=== PATIENT | male | born 1980 | race Caucasian/White ===

== ENCOUNTER → 2020-05-19 11:53 | Outpatient (CLI) | payer OTHER, SELFPAY ==
[2020-05-19 15:49] LABS: Absolute Lymphocyte Count 1.27 X10^3/uL (0.83-4.51); Absolute Neutrophil Count 2.2 X10^3/uL (2.0-7.7); Basophil# 0.01 X10^3/uL; Basophil% 0.2 % (0-1); Eosinophil# 0.12 X10^3/uL; Hematocrit 41.7 % (40-54); Hemoglobin 13.5 g/dL (13.0-16.5); Lymphocyte # 1.27 X10^3/ul (4.0); Lymphocyte % 31.5 % (19-41); Mean Corp Hgb Conc 32.4 g/dL (32-36); Mean Corpuscular Hgb 30.6 pg (27.0-32.0); Mean Corpuscular Volume 94.6 fL (80-94); Mean Platelet Vol. 11.2 fl (6.2-12.0); Monocyte# 0.46 X10^3/uL; Monocyte% 11.4 % (0-10); NRBC Flagged by Analyzer 0 % (0-5); Neutrophil # 2.16 X10^3/uL (2.7-7.7); Neutrophil % 53.7 % (47-70); Platelet Count 228 K/mm3 (150-450); RBC Distribution Width SD 41.8 fl (35.1-43.9); Red Blood Count 4.41 M/mm3 (4.6-6.2)
[2020-05-19 16:05] LABS: ALB/GLOB Ratio 1.3 RATIO (0.9-2.4); AST(SGOT) 23 U/L (15-37); Alanine Aminotransfer ALT/SGPT 28 U/L (16-61); Albumin, Serum 3.8 g/dL (3.2-5.0); Alkaline Phosphatase 58 U/L (45-117); Anion Gap 5 (5-15); BUN 14 mg/dL (7-18); BUN/Creat Ratio 12.4 RATIO (10-20); Calcium,Total 8.6 mg/dL (8.5-10.1); Chloride 109 mmol/L (98-107); Cholesterol 179 mg/dL (200); Creatinine, Serum 1.13 mg/dL (0.70-1.30); EST Glomerular Filtration Rate 76 mL/min (>60); Est Glom Filt Rate - Afr Amer 92 mL/min (>60); Globulin 2.9 g/dL (2.2-4.2); Glucose 75 mg/dL (74-106); High Density Lipoprotein 51 mg/dL; Potassium 4.6 mmol/L (3.5-5.1); Protein, Total 6.7 g/dL (6.4-8.2); Sodium Level 141 mmol/L (136-145); Triglycerides 56 mg/dL; Very Low Density Lipoprotein 11 mg/dL (5-40)
== END ==
PROVIDERS: PCP Family Medicine; Visit Provider Family Medicine
DX: Z00.00 Encounter for general adult medical examination without abnormal findings (principal)
CPT/HCPCS: 36415; 80053; 80061; 85025

== ENCOUNTER 2020-12-21 20:31 | Emergency (ER) | payer OTHER, SELFPAY ==
[2020-12-21 20:33] VITALS: BP 107/79; PULSE 104; RESP 20; TEMP 38; O2SAT 94; BMI 28.3
[2020-12-21 20:36] VITALS: BP 007/79; PULSE 104; RESP 20; TEMP 38; O2SAT 94
--- NOTE | 2020-12-21 20:59 | RAD_ITS ---
STUDY: X-RAY CHEST REASON FOR EXAM: Male, 40 years old. COVID TECHNIQUE: Portable, upright, AP chest radiograph COMPARISON: None. FINDINGS: Mild bilateral lower lung patchy infiltrative opacities. There is no demonstrated pleural abnormality. Normal size heart. Normal mediastinum and loi. Normal visualized pulmonary arteries. Normal visualized aortic arch and descending thoracic aorta. Normal visualized thoracic spine. Normal visualized ribs, clavicles, and shoulders. There is no demonstrated abnormality of the visualized soft tissue structures of the upper abdomen. RAD/Chest 1 View (Portable) IMPRESSION: Bilateral lower lung infiltrates. Electronically Signed: Vinnie Phan MD at 22:25 EDT Tel , Service support ,
[2020-12-21] MEDS: predniSONE 20 MG Tablet 60 MG PO (21:25)
[2020-12-21] MEDS: Acetaminophen 500 MG Tablet 1000 MG PO (21:25)
[2020-12-21 21:27] VITALS: BP 140/78; PULSE 88; RESP 19; TEMP 39.4; O2SAT 90
[2020-12-21 21:30] VITALS: O2SAT 90; O2SAT 96
[2020-12-21 21:32] VITALS: BP 99/75; PULSE 88; RESP 17; O2SAT 98
--- NOTE | 2020-12-21 22:04 | EDS_ITS ---
HPI History of Present Illness Chief Complaint: Shortness of Breath Narrative Narrative: Patient presenting for evaluation secondary to complications of coronavirus. Patient states that he developed symptoms on Tuesday of this week, he did test positive. States that he is here because he is having some increasing issues secondary to his underlying asthma. He reports that he is having some shortness of breath and wheezing. Continues to have fevers, has been treating these with ibuprofen and Tylenol at home. Patient states that he has an old inhaler and nebulizer which are only giving him minimal relief. He denies significant nausea or vomiting. Denies any diarrhea. Review of systems otherwise negative. [facility] Medical History Asthma Home Medications albuterol sulfate 2.5 mg INHALATION Q20M PRN #30 ea 12/21/20 [Rx Last Taken Unknown] albuterol sulfate [Ventolin HFA] 2 puff INHALATION Q6H PRN 12/21/20 [History Last Taken Unknown] prednisone 60 mg PO DAILY #15 tablet 12/21/20 [Rx Last Taken Unknown] Allergy/AdvReac Type Severity Reaction Status Date / Time No Known Allergies Allergy Verified 12/21/20 20:32 Social History Smoking Status: Never smoker ROS ROS ED Constitutional Constitutional ED: Reports chills and fever(s) ENT ENT ED: Denies rhinorrhea Cardiovascular Cardiovascular: Denies chest pain Respiratory/Chest Respiratory/Chest: Reports cough and dyspnea Gastrointestinal Gastrointestinal: Denies abdominal pain, diarrhea, nausea or vomiting Genitourinary Genitourinary ED: Denies dysuria or hematuria Musculoskeletal Musculoskeletal: Denies back pain Integumentary Denies rash Neurologic Neurologic: Denies paresthesias or weakness Psychiatric Psychiatric: Denies depression Endocrine Endocrinology: Denies fatigue Allergic/Immunologic Allergic/Immunologic ED: Denies urticaria EXAM Physical Exam Const Vital Signs: 12/21/20 20:33 12/21/20 20:36 12/21/20 21:27 Temperature 100.4 F H 100.4 F H 102.9 F H Temperature Source Temporal Temporal Oral Pulse Rate 104 H 104 H 88 Respiratory Rate 20 H 20 H 19 H Respiratory Effort Blood Pressure 107/79 007/79 140/78 H Blood Pressure Mean 88 55 98 Pulse Ox 94 94 90 Oxygen Delivery Method Room Air Room Air 12/21/20 21:30 12/21/20 21:32 Temperature Temperature Source Pulse Rate 88 Respiratory Rate 17 Respiratory Effort Normal Blood Pressure 99/75 Blood Pressure Mean 83 Pulse Ox 98 Oxygen Delivery Method Room Air Room Air Positive well nourished and well developed General Appearance ED: well developed and NAD HEENT Reports moist mucous membranes Negative for trauma or tenderness Eyes EOMs intact bilaterally Neck no lymphadenopathy, supple and no JVD Chest Wall inspection of chest normal Resp normal respiratory effort and clear to auscultation bilaterally Cardio regular rate, regular rhythm, no murmurs and peripheral pulses 2+ throughout GI normal to inspection, nondistended, normoactive bowel sounds, non-tender and no masses Palpation: soft Back/Spine normal to inspection Extremity normal to inspection General Extremety ED: Negative for tenderness Neuro oriented x3 and no sensory deficits noted Sensorium / Orientation: alert Motor Exam: strength 5/5 throughout Psych mental status grossly normal Skin no rashes or lesions noted MDM MDM MDM Narrative Medical decision making narrative: Patient presenting for evaluation secondary to coronavirus. Patient has low-grade fever, no hypoxia, is otherwise nontoxic appearing in the emergency department. Chest x-ray by my personal review shows changes consistent with coronavirus. Patient was given Tylenol in the emergency department had some improvement of his symptoms. Patient does have underlying asthma, I believe that he potentially would benefit from a course of prednisone albuterol. Will be discharged with a course of that. First dose given in the emergency department. Patient was given return precautions, and expectant management measures for coronavirus. Radiography Chest X-Ray - ED: 1 View, Right Infiltrate and Left Infiltrate Discharge Plan Triage Chief Complaint: Shortness of Breath ED Provider: Ric Valera Dx/Rx/DC Orders Clinical Impression: COVID-19 Instructions: Coronavirus Disease 2019 (COVID-19): Caring for Yourself or Others Prescriptions: New albuterol sulfate 2.5 mg/0.5 mL solution for nebulization 2.5 mg inhalation Q20M PRN (Reason: bronchospasm) Qty: 30 RF: 0 prednisone 20 mg tablet 60 mg PO DAILY Qty: 15 RF: 0 No Action albuterol sulfate [Ventolin HFA] 90 mcg/actuation Hfa Aerosol Inhaler 2 puff INHALATION Q6H PRN (Reason: Shortness Of Breath Or Wheezing) RF: 0 Primary Care Provider: Solitario Herrera Referrals: Solitario Herrera, DO [Primary Care Provider] - 10-14 Days if not better Disposition Disposition: Home, Self Care
[2020-12-21 22:31] VITALS: BP 118/71; BP 118/78; PULSE 88; RESP 17; TEMP 37.2; O2SAT 98
--- NOTE | 2020-12-21 22:40 | ED.RN ---
covid vaccine declined and will get with PCP/pharmacy once feeling better.
== END 2020-12-21 22:39 | disposition home or self-care (01) ==
PROVIDERS: Emergency Provider Emergency Medicine; PCP Family Medicine
DX: U07.1 COVID-19 (principal); J45.909 Unspecified asthma, uncomplicated; Z79.52 Long term (current) use of systemic steroids; Z79.899 Other long term (current) drug therapy
CPT/HCPCS: 71045; 99283; A4216

== ENCOUNTER 2020-12-27 11:43 | Inpatient (IN) | payer OTHER, SELFPAY ==
[2020-12-27] VITALS (24 sets, daily range): BP systolic 101–123; BP diastolic 54–96; PULSE 65–98; RESP 15–24; TEMP 36.7–37.3; O2SAT 86–98; BMI 28.7; BMI 26.8
--- NOTE | 2020-12-27 12:11 | EKG12_ITS ---
Test Reason : SOB Blood Pressure : / mmHG Vent. Rate : 084 BPM Atrial Rate : 084 BPM P-R Int : 118 ms QRS Dur : 088 ms QT Int : 376 ms P-R-T Axes : 043 007 -08 degrees QTc Int : 444 ms Normal sinus rhythm T wave abnormality, consider inferior ischemia Abnormal ECG Confirmed by CHATA CHAPA, SATYA ([id number]), magazine editor IIRS AMADO ([id number]) on 12/29/2020 12:33:36 PM Referred By: Brandon Kothari Confirmed By:SATYA BRIZUELA MD
--- NOTE | 2020-12-27 12:11 | RAD_ITS ---
STUDY: X-RAY CHEST REASON FOR EXAM: Male, 40 years old. Chest pain TECHNIQUE: Single AP portable view of the chest. COMPARISON: 12/21/2020. FINDINGS: Patchy bilateral infiltrates consistent with multifocal pneumonia. There is no demonstrated pleural abnormality. Normal size heart. Normal mediastinum and loi. Normal visualized pulmonary arteries. Normal visualized aortic arch and descending thoracic aorta. Normal visualized thoracic spine. Normal visualized ribs, clavicles, and shoulders. There is no demonstrated abnormality of the visualized soft tissue structures of the upper abdomen. RAD/Chest 1 View (Portable) IMPRESSION: Patchy bilateral infiltrates consistent with multifocal pneumonia including Covid 19. Electronically Signed: Jonathan Arias MD at 13:15 EDT Tel , Service support ,
--- NOTE | 2020-12-27 12:13 | NURSING ---
no old ekgs
[2020-12-27 12:24] LABS: Absolute Lymphocyte Count 0.89 X10^3/uL (0.83-4.51); Absolute Neutrophil Count 8.9 X10^3/uL (2.0-7.7); Basophil# 0.01 X10^3/uL; Basophil% 0.1 % (0-1); Hematocrit 46.5 % (40-54); Hemoglobin 15.1 g/dL (13.0-16.5); Lymphocyte # 0.89 X10^3/ul (0.83-4.51); Lymphocyte % 8.7 % (19-41); Mean Corp Hgb Conc 32.5 g/dL (32-36); Mean Corpuscular Hgb 29.8 pg (27.0-32.0); Mean Corpuscular Volume 91.7 fL (80-94); Mean Platelet Vol. 9.6 fl (6.2-12.0); Monocyte# 0.36 X10^3/uL; Monocyte% 3.5 % (0-10); NRBC Flagged by Analyzer 0 % (0-5); Neutrophil # 8.87 X10^3/uL (2.7-7.7); Neutrophil % 86.7 % (47-70); Platelet Count 407 K/mm3 (150-450); RBC Distribution Width CV 11.7 % (11.6-14.6); RBC Distribution Width SD 39.4 fl (35.1-43.9); Red Blood Count 5.07 M/mm3 (4.6-6.2); White Blood Count 10.2 K/mm3 (4.4-11.0)
[2020-12-27 12:55] LABS: Anion Gap 7 (5-15); BUN 17 mg/dL (7-18); BUN/Creat Ratio 14.5 RATIO (10-20); Chloride 98 mmol/L (98-107); Creatinine, Serum 1.17 mg/dL (0.70-1.30); EST Glomerular Filtration Rate 73 mL/min (>60); Est Glom Filt Rate - Afr Amer 88 mL/min (>60); Estimated Creatinine Clearance 86.66 ml/min; Glucose 105 mg/dL (74-106); Potassium 3.8 mmol/L (3.5-5.1); Sodium Level 136 mmol/L (136-145); Troponin-I HS 16 pg/mL (3.0-78.0)
--- NOTE | 2020-12-27 13:09 | CT_ITS ---
STUDY: CTA CHEST REASON FOR EXAM: Male, 40 years old. Shortness of Breath RADIATION DOSAGE (If Supplied By Facility): CTDIvol = ( 12.08 ) mGy, DLP = ( 486.71 ) mGycm TECHNIQUE: The examination was performed with the intravenous administration of IV 100mL Isovue-370. Post-processing of the angiographic images was performed, with multiplanar reformation and 3D reconstruction. Individualized dose optimization techniques were used for this CT. COMPARISON: None. FINDINGS: Normal enhancement of the main pulmonary artery and right and left pulmonary arteries. Normal enhancement of the bilateral peripheral pulmonary arteries. There is no demonstrated pulmonary embolism. Normal thoracic aorta and visualized great vessels. There is no demonstrated aortic dissection. Normal heart and pericardium. Normal mediastinum. Normal hilar regions. Normal visualized trachea and bronchi. Extensive patchy bilateral infiltrates more dense in the lower lung zones consistent with multifocal pneumonia including Covid 19. There are no pleural effusions. Normal chest wall structures. Normal osseous structures. Normal visualized upper abdomen. CT/CTA Chest W/WO Contrast IMPRESSION: 1. No evidence of pulmonary embolism or aortic dissection. 2. Extensive bilateral infiltrates consistent with multifocal pneumonia including Covid 19. Electronically Signed: Jonathan Arias MD at 13:59 EDT Tel , Service support ,
--- NOTE | 2020-12-27 13:19 | EDS_ITS ---
HPI History of Present Illness Chief Complaint: Shortness of Breath Narrative Narrative: Patient with past medical history of asthma, has nebulizer treatments and an MDI at home, presents with Covid type symptoms. He states that he was seen in the emergency department on Tuesday, approximately 7 days ago, where they performed a swab, but did not send it. He has had increased shortness of breath. He states before he was seen on Tuesday, his symptoms may have began that previous Tuesday or . Has had a low-grade fever, increasing shortness of breath, and nonproductive cough. He states that when he was seen, they did a chest x-ray, and send him home on prednisone and albuterol. He comes back with worsening symptoms, and increasing shortness of breath. He states that he has not gotten his vaccinations for COVID-19. [facility] Medical History Asthma Home Medications albuterol sulfate 2.5 mg INHALATION Q20M PRN #30 ea 12/21/20 [Rx Last Taken Unknown] albuterol sulfate [Ventolin HFA] 2 puff INHALATION Q6H PRN 12/21/20 [History Last Taken Unknown] prednisone 60 mg PO DAILY #15 tablet 12/21/20 [Rx Last Taken Unknown] Allergy/AdvReac Type Severity Reaction Status Date / Time No Known Allergies Allergy Verified 12/27/20 11:47 Social History Smoking Status: Never smoker ROS ROS ED ROS Narrative Constitutional: Positive fever, no chills. HEENT: No sore throat. No neck pain. No loss of vision. No rhinorrhea. Cardiovascular: No chest pain. No palpitations. No pedal edema. Respiratory: Positive cough, worsening shortness of breath. Abdominal: No abdominal pain. No nausea. No vomiting. Genitourinary: No dysuria. No hematuria. Musculoskeletal: No myalgias. No arthralgias. Neurologic: No headaches. No dizziness. No lightheadedness. Skin: No rash. No change in color. Psychiatric: No depression. No anxiety. EXAM Physical Exam Narrative Exam Narrative: Afebrile. Vital signs noted. HEENT: Normocephalic. Atraumatic. PERRL, EOMI. Neck soft and supple. No point tenderness or step off. Cardiovascular: Regular rate and rhythm. No murmurs, rubs, or gallops appreciated. Respiratory: No tachypnea. Coarse breath sounds bilaterally Gastrointestinal: Abdomen soft, nontender, with normoactive bowel sounds. No rebound or guarding. Neurological: Awake. Alert. Nonfocal, nonlateralizing. Skin: No rash. Normal color. No pallor. Musculoskeletal: No pedal edema. Full range of motion extremities. Const Vital Signs: 12/27/20 11:44 12/27/20 12:13 12/27/20 12:14 Temperature 98.4 F 98.4 F Temperature Source Temporal Temporal Pulse Rate 98 98 Respiratory Rate 20 H 20 H Blood Pressure 114/87 H 114/87 H Blood Pressure Mean 96 96 Pulse Ox 86 93 93 Oxygen Delivery Method Room Air Nasal Cannula Nasal Cannula Oxygen Flow Rate (L/min) 3 3 12/27/20 13:16 Temperature Temperature Source Pulse Rate Respiratory Rate Blood Pressure Blood Pressure Mean Pulse Ox 90 Oxygen Delivery Method Nasal Cannula Oxygen Flow Rate (L/min) 6 MDM MDM MDM Narrative Medical decision making narrative: Comprehensive work-up was pursued. Upon further history taking, and review of his EMR, he had told the previous physician that he had already tested positive for coronavirus. When questioned, patient states that he had an outpatient rapid test performed at [facility], which was positive. I explained to him that is why they did not repeat the coronavirus swab on Tuesday because he was a known positive. Nursing protocols have been entered. He is testing positive for coronavirus still. He was placed on 4 L nasal cannula with good oxygen saturations but experienced a dip in his pulse ox to 88% so he was increased to 6 L, and is satting 92%. He is speaking in full sentences. He has a white count of ten. His laboratory work is grossly unremarkable. Chest x-ray shows multifocal bilateral infiltrates consistent with COVID-19. He is still testing positive for COVID-19. He was administered Decadron 6 mg intravenously. I did add a ABG, D-dimer, and CTA. I then discussed the patient with Dr. Kothari for admission to the ICU. I do feel that this is appropriate given his increasing hypoxia. Disposition is admit to the ICU in guarded condition. Lab Data Labs: Laboratory Results - last 24 hr 12/27/20 12/27/20 12:05 12:05 WBC 10.2 RBC 5.07 Hgb 15.1 Hct 46.5 MCV 91.7 MCH 29.8 MCHC 32.5 RDW Std Deviation 39.4 RDW Coeff of [place] 11.7 Plt Count 407 MPV 9.6 Immature Gran % (Auto) 1.000 H Neut % (Auto) 86.7 H Lymph % (Auto) 8.7 L [place] % (Auto) 3.5 Eos % (Auto) 0.0 Baso % (Auto) 0.1 Absolute Neuts (auto) 8.9 H Absolute Lymphs (auto) 0.89 Nucleated RBC % 0 Sodium 136 Potassium 3.8 Chloride 98 Carbon Dioxide 31.0 Anion Gap 7 BUN 17 Creatinine 1.17 Estim Creat Clear Calc 86.66 Est GFR (MDRD) Af Amer 88 Est GFR (MDRD) Non-Af 73 BUN/Creatinine Ratio 14.5 Glucose 105 Calcium 9.0 Troponin I High Sens 16 Radiography Diagnostic Testing: Radiology Impression Chest X-Ray 12/27/20 12:11 IMPRESSION: Patchy bilateral infiltrates consistent with multifocal pneumonia including Covid 19. Electronically Signed: Jonathan Arias MD at 13:15 EDT Tel , Service support , Critical Care Time Critical Care Time: Yes Critical care time (excluding procedures): 30-74 minutes (35), Discussing w/Patient &/or Family/Wind Turbine Technician and Discussing w/Consultants Discharge Plan Triage Chief Complaint: Shortness of Breath ED Provider: Curt Lama Dx/Rx/DC Orders Clinical Impression: COVID-19, Hypoxia Prescriptions: No Action albuterol sulfate [Ventolin HFA] 90 mcg/actuation Hfa Aerosol Inhaler 2 puff INHALATION Q6H PRN (Reason: Shortness Of Breath Or Wheezing) RF: 0 albuterol sulfate 2.5 mg/0.5 mL solution for nebulization 2.5 mg inhalation Q20M PRN (Reason: bronchospasm) Qty: 30 RF: 0 prednisone 20 mg tablet 60 mg PO DAILY Qty: 15 RF: 0 Primary Care Provider: Solitario Herrera Referrals: Solitario Herrera, DO [Primary Care Provider] -
--- NOTE | 2020-12-27 13:27 | HP.PCM.HOS_ITS ---
HPI - General General Date of Admission: 12/27/20 HPI Narrative ROSE RUTLEDGE, is a 40 M who presents to ED for worsening of shortness of breath, nonproductive cough, wheezing for 7 days. His symptoms started about 10 days ago with fatigue, weakness and nonspecific muscle aches. Patient also complains of intermittent fever and chills at home. Has chest tightness mainly on breathing which precipitates his cough. Patient has history of asthma but he does well controlled last 3 to 4 years and on as needed albuterol at home. Chest x-ray and CTA done in ED which shows no evidence of pulmonary embolism but extensive bilateral infiltrates consistent with multifocal, groundglass opacity COVID-19/viral pneumonia. Twelve-lead EKG shows normal sinus rhythm 84 bpm, nonspecific T inversion in lead II and III, QTC 444 ms. Patient is also sick with nonspecific Covid symptoms for last 4 to 5 days. Patient has 3 small kids. He claims to be not a smoker. [facility] Medical History Asthma Home Medications dexamethasone 6 mg PO DAILY 12/27/20 [History Last Taken Unknown] Allergy/AdvReac Type Severity Reaction Status Date / Time No Known Allergies Allergy Verified 12/27/20 11:47 Social History Smoking Status: Never smoker ROS ROS Narrative Constitutional: Reports fatigue and weakness, shortness of breath HEENT: Reports systems reviewed and no addt'l complaints, except as documented Respiratory/Chest: As mentioned in HPI Gastrointestinal: Nausea. Denies coffee ground emesis, hematemesis or vomiting Genitourinary: Denies burning urination or new urinary tract symptoms Musculoskeletal: No joint pain and limited range of motion Neurologic: Denies seizure-like activity skin: No ulcer. No rash Endocrinology: Reports systems reviewed and no addt'l complaints, except as documented Hematologic/Lymphatic: Reports systems reviewed and no addt'l complaints, except as documented Rest 12 ROS are negative except as mentioned in HPI Vital Signs Vital Signs Vital Signs: 12/27/20 11:44 12/27/20 12:13 12/27/20 12:14 Temperature 98.4 F 98.4 F Temperature Source Temporal Temporal Pulse Rate 98 98 Respiratory Rate 20 H 20 H Blood Pressure 114/87 H 114/87 H Blood Pressure Mean 96 96 Pulse Ox 86 93 93 Oxygen Delivery Method Room Air Nasal Cannula Nasal Cannula Oxygen Flow Rate (L/min) 3 3 12/27/20 13:16 Temperature Temperature Source Pulse Rate Respiratory Rate Blood Pressure Blood Pressure Mean Pulse Ox 90 Oxygen Delivery Method Nasal Cannula Oxygen Flow Rate (L/min) 6 Weight Weight: 200 lb Body Mass Index (BMI) 28.7 Physical Exam Narrative Physical exam General: Alert, Oriented x3, Cooperative HEENT: Atraumatic, PERRLA, EOMI, Normocephalic Oral: No Gingival or Mucosal Lesions/ Ulcerations Neck: Supple, No JVD, Negative Carotid Bruits Lungs: Air entry diminished in bilateral lungs. Bilateral inspiratory rhonchi and crepitations present. Severe hypoxia and tachypnea. Cardiovascular: Regular rate, Regular Rhythm, Normal S1, Normal S2, No murmurs Abdomen: Bowel Sounds Present, Soft, Non Tender, Non-Distended : No renal angle tenderness. No suprapubic tenderness. Extremities: No edema, Capillary Refill Less than 3 Seconds Skin: No rashes, No breakdown Musculoskeletal: No Tenderness to Palpation of Joints or Extremities Neurological: Cranial nerves II-XII grossly intact, DTR 2+/4 and Symmetrical, Neuro grossly intact Psych/Mental Status: Normal Affect, Appropriate. Results Lab / Micro Data Result Diagrams: 12/27/20 12:05 12/27/20 12:05 Labs: Laboratory Results - last 24 hr 12/27/20 12:05: WBC 10.2, RBC 5.07, Hgb 15.1, Hct 46.5, MCV 91.7, MCH 29.8, MCHC 32.5, RDW Std Deviation 39.4, RDW Coeff of [place] 11.7, Plt Count 407, MPV 9.6, Immature Gran % (Auto) 1.000 H, Neut % (Auto) 86.7 H, Lymph % (Auto) 8.7 L, [place] % (Auto) 3.5, Eos % (Auto) 0.0, Baso % (Auto) 0.1, Absolute Neuts (auto) 8.9 H, Absolute Lymphs (auto) 0.89, Nucleated RBC % 0 12/27/20 12:05: Sodium 136, Potassium 3.8, Chloride 98, Carbon Dioxide 31.0, Anion Gap 7, BUN 17, Creatinine 1.17, Estim Creat Clear Calc 86.66, Est GFR (MDRD) Af Amer 88, Est GFR (MDRD) Non-Af 73, BUN/Creatinine Ratio 14.5, Glucose 105, Calcium 9.0, Troponin I High Sens 16 Micro: Microbiology 12/27/20 12:00 Nasal Secretion SARS-CoV-2 Antigen (Rapid) - Final SARS-CoV-2 (COVID 19) Radiology Impression Chest X-Ray 12/27/20 12:11 IMPRESSION: Patchy bilateral infiltrates consistent with multifocal pneumonia including Covid 19. Electronically Signed: Jonathan Arias MD at 13:15 EDT Tel , Service support , Assessment & Plan Assessment/Plan (1) Acute respiratory failure with hypoxia: (2) COVID-19: PLAN: This 40-year-old gentleman admitted for acute hypoxic respiratory failure secondary to bilateral COVID-19 pneumonia. 1. Acute hypoxic respiratory failure secondary to COVID-19 pneumonia: ABG 7.4 on 7 L of oxygen. Patient is being admitted in ICU. We will start AIRVO and if needed BiPAP/AVAPS. Director Of Land Acquisition consult to further manage respiratory failure. Started on bolus 200 mg IV remdesivir and Decadron. Discussed with the pharmacist and does not have 100 mg IV remdesivir to continue from tomorrow. Supportive treatment with remdesivir, incentive spirometry and Pep. 2. Asthma exacerbation secondary to COVID-19 pneumonia with history of chronic intermittent asthma: DuoNeb nebulizer and albuterol as needed. Patient is on a steroid. 3. DVT prophylaxis: Lovenox 30 mg subcu twice daily. Discontinue if platelet c ount drops less than 50,000 or hemoglobin less than 8 g% Living will/advanced directive/end of life care: Patient does not have living will or advanced directive. After discussion of benefits/risks procedures involved with full code, DNR CC arrest and DNR CC, the patient wants full code and everything to be done to save him. Patient does want artificial life support including intubation, tube feed, ventilator and/chest compression, central venous catheter, vasopressor and DC shock if needed Total time spent in [id number] encounter in discussion of advanced directive 16 minutes. Charges/Coding Visit Charges Inpatient E&M: 22639 Init Hosp L3 Procedures Hospitalists Procedures: [id number] Advncd Care Plan 30 Min
--- NOTE | 2020-12-27 13:31 | NURSING ---
DR CHILEL FOR ER DOC
--- NOTE | 2020-12-27 13:33 | NURSING ---
ICU [facility] COVID 19, HYPOXIA
--- NOTE | 2020-12-27 13:41 | NURSING ---
ICU 6
[2020-12-27] MEDS: dexAMETHasone 10 MG/ML Vial 6 MG IV (13:44)
[2020-12-27 14:11] LABS: Allen Test Positive; Base Excess 3 mmol/L (-2 to +2); Bicarbonate 27.1 mmol/L (22-26); Blood Gas Specimen Type ART; O2 Delivery Device Cannula; PO2 66 mmHG (75-100); SITE L Radial; SO2 94 % (95-99); Total Carbon Dioxide 28 mmol/L; pCO2 37.6 mmHg (35-45); pH 7.47 (7.35-7.45)
[2020-12-27 14:26] LABS: Ferritin 1600 ng/mL (26-388); Magnesium 2.6 mg/dL (1.6-2.6)
[2020-12-27 14:31] LABS: Procalcitonin 0.12 ng/mL (0.00-0.09)
[2020-12-27] MEDS: Enoxaparin 30 MG/0.3 ML Syringe SC ×2 (14:58→20:27)
[2020-12-27] MEDS: Ipratropium/Albuterol Sulfate 3 ML AMPUL.NEB INHALATION ×3 (15:22→22:42)
[2020-12-27] MEDS: Lactated Ringers 1,000 ML 100 ML IV (18:03)
[2020-12-28] VITALS (34 sets, daily range): BP systolic 105–130; BP diastolic 64–91; PULSE 50–91; RESP 14–32; TEMP 36.6–37.2; O2SAT 6–99
[2020-12-28] MEDS: Ipratropium/Albuterol Sulfate 3 ML AMPUL.NEB INHALATION ×6 (03:22→23:49)
[2020-12-28 04:17] LABS: Absolute Lymphocyte Count 0.75 X10^3/uL (0.83-4.51); Absolute Neutrophil Count 4.9 X10^3/uL (2.0-7.7); Basophil# 0.01 X10^3/uL; Basophil% 0.2 % (0-1); Hematocrit 42.7 % (40-54); Hemoglobin 14.1 g/dL (13.0-16.5); Lymphocyte # 0.75 X10^3/ul (0.83-4.51); Lymphocyte % 12.9 % (19-41); Mean Corpuscular Hgb 30.5 pg (27.0-32.0); Mean Corpuscular Volume 92.4 fL (80-94); Mean Platelet Vol. 9.7 fl (6.2-12.0); Monocyte# 0.14 X10^3/uL; Monocyte% 2.4 % (0-10); NRBC Flagged by Analyzer 0 % (0-5); Neutrophil # 4.86 X10^3/uL (2.7-7.7); Neutrophil % 83.3 % (47-70); POSITIVE MORPHOLOGY YES; Platelet Count 345 K/mm3 (150-450); RBC Distribution Width CV 11.7 % (11.6-14.6); RBC Distribution Width SD 39.7 fl (35.1-43.9); Red Blood Count 4.62 M/mm3 (4.6-6.2); White Blood Count 5.8 K/mm3 (4.4-11.0)
[2020-12-28 04:34] LABS: ALB/GLOB Ratio 0.6 RATIO (0.9-2.4); AST(SGOT) 40 U/L (15-37); Alanine Aminotransfer ALT/SGPT 44 U/L (16-61); Albumin, Serum 2.5 g/dL (3.2-5.0); Alkaline Phosphatase 56 U/L (45-117); Anion Gap 5 (5-15); BUN 14 mg/dL (7-18); Calcium,Total 8.2 mg/dL (8.5-10.1); Chloride 100 mmol/L (98-107); EST Glomerular Filtration Rate 88 mL/min (>60); Est Glom Filt Rate - Afr Amer 106 mL/min (>60); Estimated Creatinine Clearance 101.39 ml/min; Globulin 4.5 g/dL (2.2-4.2); Glucose 134 mg/dL (74-106); Sodium Level 136 mmol/L (136-145)
[2020-12-28 04:42] LABS: Differential Indicated SCAN CRITERIA MET
--- NOTE | 2020-12-28 06:49 | CON.PCM.CC_ITS ---
Assessment & Plan Assessment/Plan (1) Acute respiratory failure with hypoxia: (2) COVID-19: PLAN: RECOMMENDATIONS: 1. Continue supportive care with supplemental oxygen to maintain saturations at or above 90%. 2. Continue Decadron to complete 10-day treatment course. 3. Continue Lovenox twice daily. 4. Remdesivir will not be available until tomorrow. 5. Continue bronchodilators. 6. Encourage incentive spirometer use and mobilize patient as tolerated. 7. Awake prone positioning was strongly encouraged. 8. The patient does not currently have any ICU needs and can be transferred accordingly. IMPRESSIONS: 1. Acute hypoxemic respiratory failure secondary to COVID-19 pneumonia The patient presented to the hospital with progressive dyspnea in the setting of COVID-19, with symptom onset sometime around December 17. The patient is unvaccinated. CTA chest showed no evidence for PE. The patient has been started on appropriate therapy with remdesivir and Decadron, which will be continued without change. Continue supplemental oxygen and wean to maintain saturations at or above 90%. Continue bronchodilator therapy. Continue Lovenox twice daily. Encourage incentive spirometer use and mobilize patient as tolerated. Await prone positioning was discussed with the patient. 2. Self-reported history of asthma Continue bronchodilator therapy as ordered. This note was generated with [employer] dictation software. It may contain incorrect words, spelling, and punctuation that were not noted in checking the note before signing. HPI Consult Data Date of Consult: 12/28/20 HPI Narrative Reason for Consultation: Acute hypoxemic respiratory failure secondary to COVID- 19 pneumonia HPI Narrative: The patient is a 40-year-old male, with a history as outlined below, who presented to the emergency department on December 27 with complaints of shortness of breath. The patient had been evaluated in the emergency department as well on December 21 with similar complaints. The patient had apparently developed symptoms beginning on December 17. The patient was not hypoxemic at that time. The patient is unvaccinated. He does report a history of asthma, with minimal symptoms at baseline. On presentation to the emergency department, the patient was noted to be afebrile and hemodynamically stable. The patient was hypoxemic on room air saturating 86%. Laboratory evaluation revealed no evidence of a leukocytosis. D-dimer was elevated at 1.5. Chemistry profile was unremarkable. Procalcitonin was noted to be 0.12. Arterial blood gas obtained on nasal cannula supplemental oxygen revealed a pH of 7.47, PCO2 of 37 and PO2 of 66. CTA chest showed no evidence for pulmonary embolism. Bilateral patchy infiltrates were noted. Rapid coronavirus antigen testing was positive. The patient was placed on Decadron and Lovenox. He was subsequently admitted to the medical intensive care unit for further management. Although the patient was initially admitted with an oxygen requirement of 10 L/min, he has been weaned down to 7 L/min via nasal cannula this morning. He is currently documented to be overall net +1.6 L for the hospital admission. [facility] Medical History Asthma Home Medications albuterol sulfate 2.5 mg INHALATION Q4H 12/27/20 [History Last Taken 12/27/20 07:00] dexamethasone 6 mg PO DAILY 12/27/20 [History Last Taken Unknown] Allergy/AdvReac Type Severity Reaction Status Date / Time No Known Allergies Allergy Verified 12/27/20 11:47 Social History (Updated 12/27/20 @ 14:40 by Katelynn Fletcher) housing: house Smoking Status: Never smoker ROS Constitutional Constitutional: Reports chills, fatigue, fever(s) and malaise Eyes Eyes: Denies blurry vision or change in vision ENT HEENT: Denies dysphagia, loss taste/smell or nasal congestion Cardiovascular Cardiovascular: Reports dyspnea Respiratory/Chest Respiratory/Chest: Reports cough and dyspnea Gastrointestinal Gastrointestinal: Denies abdominal pain, diarrhea, nausea or vomiting Genitourinary Genitourinary: Denies difficulty urinating Musculoskeletal Musculoskeletal: Denies arthralgias or back pain Integumentary Integumentary: Denies lesions, rash or skin ulcer Neurologic Neurologic: Denies abnormal gait, abnormal speech or confusion Psychiatric Psychiatric: Denies anxiety or depression Endocrine Endocrinology: Reports fatigue Hematologic/Lymphatic Hematologic/Lymphatic: Denies easy bleeding or easy bruising Physical Exam Const alert, oriented x3 and no apparent distress General Appearance: cooperative HEENT normocephalic, head/scalp atraumatic and moist oral mucous membranes Eyes PERRL, EOMs intact bilaterally and conjunctivae normal Neck supple General: trachea midline Resp normal respiratory effort Auscultation: diminished lung sounds; Negative for rales, rhonchi or wheezes Cardio regular rate and regular rhythm GI normal to inspection, nondistended, normoactive bowel sounds Extremity no clubbing, cyanosis or edema Skin no rashes or lesions noted Neuro oriented x3, CN's II-XII intact bilaterally, moves all extremities and no focal motor deficits Psych cooperative and affect normal Lab / Micro Data Result Diagrams: 12/28/20 04:10 12/28/20 04:10 Labs: Laboratory Results - last 24 hr 12/27/20 12:05: WBC 10.2, RBC 5.07, Hgb 15.1, Hct 46.5, MCV 91.7, MCH 29.8, MCHC 32.5, RDW Std Deviation 39.4, RDW Coeff of [place] 11.7, Plt Count 407, MPV 9.6, Immature Gran % (Auto) 1.000 H, Neut % (Auto) 86.7 H, Lymph % (Auto) 8.7 L, [place] % (Auto) 3.5, Eos % (Auto) 0.0, Baso % (Auto) 0.1, Absolute Neuts (auto) 8.9 H, Absolute Lymphs (auto) 0.89, Nucleated RBC % 0 12/27/20 12:05: Sodium 136, Potassium 3.8, Chloride 98, Carbon Dioxide 31.0, Anion Gap 7, BUN 17, Creatinine 1.17, Estim Creat Clear Calc 86.66, Est GFR (MDRD) Af Amer 88, Est GFR (MDRD) Non-Af 73, BUN/Creatinine Ratio 14.5, Glucose 105, Calcium 9.0, Troponin I High Sens 16 12/27/20 12:05: Magnesium 2.6, Ferritin 1600 H, C-React Prot Ext Range 118.00 H 12/27/20 12:05: Procalcitonin 0.12 H 12/27/20 13:15: D-Dimer Quant (PE/DVT) 1.50 H* 12/28/20 04:10: WBC 5.8, RBC 4.62, Hgb 14.1, Hct 42.7, MCV 92.4, MCH 30.5, MCHC 33.0, RDW Std Deviation 39.7, RDW Coeff of [place] 11.7, Plt Count 345, MPV 9.7, Immature Gran % (Auto) 1.200 H, Neut % (Auto) 83.3 H, Lymph % (Auto) 12.9 L, [place] % (Auto) 2.4, Eos % (Auto) 0.0, Baso % (Auto) 0.2, Absolute Neuts (auto) 4.9, Absolute Lymphs (auto) 0.75 L, Nucleated RBC % 0 12/28/20 04:10: Sodium 136, Potassium 4.0, Chloride 100, Carbon Dioxide 31.0, Anion Gap 5, BUN 14, Creatinine 1.00, Estim Creat Clear Calc 101.39, Est GFR (MDRD) Af Amer 106, Est GFR (MDRD) Non-Af 88, BUN/Creatinine Ratio 14.0, Glucose 134 H, Calcium 8.2 L, Total Bilirubin 0.70, AST 40 H, ALT 44, Alkaline Phosphatase 56, Total Protein 7.0, Albumin 2.5 L, Globulin 4.5 H, Albumin/Globulin Ratio 0.6 L Micro: Microbiology 12/27/20 12:00 Nasal Secretion SARS-CoV-2 Antigen (Rapid) - Final SARS-CoV-2 (COVID 19) ABG Data ABG results: ABG 12/27/20 14:03 Specimen Type ART Sample Site L Radial pH 7.47 H Bicarbonate Actual 27.1 H Total CO2 28 Base Excess 3 H O2 Saturation 94 L ABG pCO2 37.6 ABG pO2 66 L Sanju Test Positive O2 Delivery Device Cannula Liter Flow 7.0 Radiology Impression Chest X-Ray 12/27/20 12:11 IMPRESSION: Patchy bilateral infiltrates consistent with multifocal pneumonia including Covid 19. Electronically Signed: Jonathan Arias MD at 13:15 EDT Tel , Service support , Chest CTA 12/27/20 13:09 IMPRESSION: 1. No evidence of pulmonary embolism or aortic dissection. 2. Extensive bilateral infiltrates consistent with multifocal pneumonia including Covid 19. Electronically Signed: Jonathan Arias MD at 13:59 EDT Tel , Service support , Charges/Coding Visit Charges Inpatient E&M: 76819 Init Hosp L3
[2020-12-28] MEDS: Pantoprazole Sodium 40 MG Tablet PO (10:32)
[2020-12-28] MEDS: Enoxaparin 30 MG/0.3 ML Syringe SC ×2 (10:33→21:51)
[2020-12-28] MEDS: dexAMETHasone 10 MG/ML Vial 6 MG IV (10:34)
[2020-12-28] MEDS: 0.9% Saline Lock 10 ML Syringe IV (10:35)
--- NOTE | 2020-12-28 12:33 | PCM.PN.HOSP ---
Subjective Subjective Patient notes of breath is little better than yesterday. Dry cough. Objective Data Objective Data Vital Signs: Vital Signs Temp Pulse Resp BP Pulse Ox 98.7 F 91 18 120/74 97 12/28/20 08:00 12/28/20 10:41 12/28/20 10:41 12/28/20 08:00 12/28/20 10:41 Oxygen Flow Rate (L/min) 9 Oxygen Delivery Method Nasal Cannula Weight: 188 lb 14.978 oz Body Mass Index (BMI) 26.8 Intake & Output: Intake and Output for Last 24 Hours 12/26/20 12/27/20 12/28/20 23:59 23:59 23:59 Intake Total 990 / 990 1440 / 1440 Output Total 300 / 300 Balance 690 / 690 1440 / 1440 Lab / Micro Data Result Diagrams: 12/28/20 04:10 12/28/20 04:10 Labs: Laboratory Results - last 24 hr 12/27/20 12:05: Sodium 136, Potassium 3.8, Chloride 98, Carbon Dioxide 31.0, Anion Gap 7, BUN 17, Creatinine 1.17, Estim Creat Clear Calc 86.66, Est GFR (MDRD) Af Amer 88, Est GFR (MDRD) Non-Af 73, BUN/Creatinine Ratio 14.5, Glucose 105, Calcium 9.0, Troponin I High Sens 16 12/27/20 12:05: Magnesium 2.6, Ferritin 1600 H, C-React Prot Ext Range 118.00 H 12/27/20 12:05: Procalcitonin 0.12 H 12/27/20 13:15: D-Dimer Quant (PE/DVT) 1.50 H* 12/28/20 04:10: WBC 5.8, RBC 4.62, Hgb 14.1, Hct 42.7, MCV 92.4, MCH 30.5, MCHC 33.0, RDW Std Deviation 39.7, RDW Coeff of [place] 11.7, Plt Count 345, MPV 9.7, Immature Gran % (Auto) 1.200 H, Neut % (Auto) 83.3 H, Lymph % (Auto) 12.9 L, [place] % (Auto) 2.4, Eos % (Auto) 0.0, Baso % (Auto) 0.2, Absolute Neuts (auto) 4.9, Absolute Lymphs (auto) 0.75 L, Nucleated RBC % 0 12/28/20 04:10: Sodium 136, Potassium 4.0, Chloride 100, Carbon Dioxide 31.0, Anion Gap 5, BUN 14, Creatinine 1.00, Estim Creat Clear Calc 101.39, Est GFR (MDRD) Af Amer 106, Est GFR (MDRD) Non-Af 88, BUN/Creatinine Ratio 14.0, Glucose 134 H, Calcium 8.2 L, Total Bilirubin 0.70, AST 40 H, ALT 44, Alkaline Phosphatase 56, Total Protein 7.0, Albumin 2.5 L, Globulin 4.5 H, Albumin/Globulin Ratio 0.6 L Micro: Microbiology 12/27/20 12:00 Nasal Secretion SARS-CoV-2 Antigen (Rapid) - Final SARS-CoV-2 (COVID 19) ABG Data ABG results: ABG 12/27/20 14:03 Specimen Type ART Sample Site L Radial pH 7.47 H Bicarbonate Actual 27.1 H Total CO2 28 Base Excess 3 H O2 Saturation 94 L ABG pCO2 37.6 ABG pO2 66 L Sanju Test Positive O2 Delivery Device Cannula Liter Flow 7.0 Radiography Diagnostic Testing: Radiology Impression Chest X-Ray 12/27/20 12:11 IMPRESSION: Patchy bilateral infiltrates consistent with multifocal pneumonia including Covid 19. Electronically Signed: Jonathan Arias MD at 13:15 EDT Tel , Service support , Chest CTA 12/27/20 13:09 IMPRESSION: 1. No evidence of pulmonary embolism or aortic dissection. 2. Extensive bilateral infiltrates consistent with multifocal pneumonia including Covid 19. Electronically Signed: Jonathan Arias MD at 13:59 EDT Tel , Service support , Physical Exam Narrative Physical exam General: Alert, Oriented x3, Cooperative HEENT: Atraumatic, PERRLA, EOMI, Normocephalic Oral: No Gingival or Mucosal Lesions/ Ulcerations Neck: Supple, No JVD, Negative Carotid Bruits Lungs: Air entry diminished in bilateral lungs. Bilateral inspiratory rhonchi and crepitations present. Severe hypoxia Cardiovascular: Regular rate, Regular Rhythm, Normal S1, Normal S2, No murmurs Abdomen: Bowel Sounds Present, Soft, Non Tender, Non-Distended : No renal angle tenderness. No suprapubic tenderness. Extremities: No edema, Capillary Refill Less than 3 Seconds Skin: No rashes, No breakdown Musculoskeletal: No Tenderness to Palpation of Joints or Extremities Neurological: Cranial nerves II-XII grossly intact, DTR 2+/4 and Symmetrical, Neuro grossly intact Psych/Mental Status: Normal Affect, Appropriate. Assessment & Plan Assessment/Plan (1) Acute respiratory failure with hypoxia: (2) COVID-19: PLAN: This 40-year-old gentleman admitted for acute hypoxic respiratory failure secondary to bilateral COVID-19 pneumonia. 1. Acute hypoxic respiratory failure secondary to COVID-19 pneumonia: ABG 7.4 // on 7 L of oxygen. Patient is being admitted in ICU. We will start AIRVO and if needed BiPAP/AVAPS. Senior Electrical Engineer consult to further manage respiratory failure. Started on bolus 200 mg IV remdesivir and Decadron. Discussed with the pharmacist and does not have 100 mg IV remdesivir to continue from tomorrow. Supportive treatment with remdesivir, incentive spirometry and Pep. 12/28: Patient on 7 to 9 L of oxygen through nasal cannula. Subjective slight improvement with the patient. Senior Electrical Engineer consult reviewed. 2. Asthma exacerbation secondary to COVID-19 pneumonia with history of chronic intermittent asthma: DuoNeb nebulizer and albuterol as needed. Patient is on a steroid. 3. DVT prophylaxis: Lovenox 30 mg subcu twice daily. Discontinue if platelet count drops less than 50,000 or hemoglobin less than 8 g% Living will/advanced directive/end of life care: Patient does not have living will or advanced directive. After discussion of benefits/risks procedures involved with full code, DNR CC arrest and DNR CC, the patient wants full code and everything to be done to save him. Patient does want artificial life support including intubation, tube feed, ventilator and/chest compression, central venous catheter, vasopressor and DC shock if needed Total time spent in [id number] encounter in discussion of advanced directive 16 minutes. Charges/Coding Visit Charges Inpatient E&M: 80150 Subs Hosp L2
[2020-12-28] MEDS: guaiFENesin 1,200 MG Tablet 1200 MG PO ×2 (14:01→21:51)
[2020-12-28] MEDS: Sodium Chloride 0.65% 1 SPRAY SPRAY.BTL 2 SPRAY NASAL (21:51)
[2020-12-29] VITALS (18 sets, daily range): BP systolic 108–123; BP diastolic 65–82; PULSE 52–98; RESP 16–20; TEMP 36.7–37.3; O2SAT 90–97
[2020-12-29] MEDS: guaiFENesin 1,200 MG Tablet 1200 MG PO ×2 (08:27→22:18)
[2020-12-29] MEDS: dexAMETHasone 4 MG Tablet 6 MG PO (08:27)
[2020-12-29] MEDS: Pantoprazole Sodium 40 MG Tablet PO (08:28)
[2020-12-29] MEDS: Enoxaparin 30 MG/0.3 ML Syringe SC ×2 (08:28→22:18)
[2020-12-29] MEDS: Sodium Chloride 0.65% 1 SPRAY SPRAY.BTL 2 SPRAY NASAL ×2 (08:29→17:23)
[2020-12-29 08:48] LABS: Anion Gap 4 (5-15); BUN 12 mg/dL (7-18); BUN/Creat Ratio 12.6 RATIO (10-20); Calcium,Total 8.3 mg/dL (8.5-10.1); Chloride 103 mmol/L (98-107); Creatinine, Serum 0.95 mg/dL (0.70-1.30); EST Glomerular Filtration Rate 93 mL/min (>60); Est Glom Filt Rate - Afr Amer 112 mL/min (>60); Estimated Creatinine Clearance 106.73 ml/min; Glucose 89 mg/dL (74-106); Potassium 4.2 mmol/L (3.5-5.1); Sodium Level 137 mmol/L (136-145)
[2020-12-29 08:55] LABS: Absolute Lymphocyte Count 1.01 X10^3/uL (0.83-4.51); Absolute Neutrophil Count 7.1 X10^3/uL (2.0-7.7); Basophil# 0.01 X10^3/uL; Basophil% 0.1 % (0-1); Eosinophil# 0.01 X10^3/uL; Eosinophils% 0.1 % (0-5); Hemoglobin 13.5 g/dL (13.0-16.5); Lymphocyte # 1.01 X10^3/ul (0.83-4.51); Mean Corp Hgb Conc 32.9 g/dL (32-36); Mean Corpuscular Hgb 30.3 pg (27.0-32.0); Mean Corpuscular Volume 92.1 fL (80-94); Mean Platelet Vol. 9.6 fl (6.2-12.0); Monocyte# 0.22 X10^3/uL; Monocyte% 2.6 % (0-10); NRBC Flagged by Analyzer 0 % (0-5); Neutrophil % 84.3 % (47-70); Platelet Count 422 K/mm3 (150-450); RBC Distribution Width CV 11.7 % (11.6-14.6); RBC Distribution Width SD 39.5 fl (35.1-43.9); Red Blood Count 4.45 M/mm3 (4.6-6.2); White Blood Count 8.4 K/mm3 (4.4-11.0)
--- NOTE | 2020-12-29 10:28 | CASEMGMT ---
REX SHAW assessment: Face to Face with patient for initial transition planning/care coordination assessment. REX SHAW introduced self and role at [facility], pt voices understanding and consents to assessment. Pt is on 9-10L nc with some tachypnea/SOB. Pt is A/Ox4 and answers all questions appropriately. Care providers, pharmacy, and demographics verified. Presentation: Pt dx'd with COVID last tuesday and states hx asthma Admitting dx: Acute hypoxic resp failure d/t COVID PCP: Sharon Specialists: Pt states no current specialists. Preferred Pharmacy: [facility] Insurance: MMO Prescription Benefit: MMO Living Will/HPOA: Pt states does not have LW/HPOA but is interested in AD info. Pt provided AD paperwork and SW rac card via Carla GOODMAN. LNOK: Carol Ann Mclaughlin, -pt states has not been tested and pt 'doesn't know' if she has symptoms. Living Arrangements: Pt states lives with in ranch home and states no concerns at home. Pt is independent with ADL's. Pt states no concerns with getting groceries/supplies once home. Transportation: Pt states drives self and states no transportation concerns. DME/HHC: Pt states no current DME or need for any DME. Pt states no preference for DME provider if qualifies for home oxygen at discharge. Pt states no hx of HHC or SNF. Pt states no concerns with going home at time of discharge. Pt works full stack web developer. Pt states no hx of smoking cigarettes or drinking ETOH. Pt states no further concerns/needs. CM to follow for home oxygen need and any further discharge planning/needs. Advised pt to ask for CM if any further questions/concerns/needs arise, voices understanding. Pt Goal: Home Plan: Home, pending home oxygen testing. [place] REX SHAW
[2020-12-29] MEDS: Ipratropium/Albuterol Sulfate 3 ML AMPUL.NEB INHALATION ×4 (10:36→23:29)
--- NOTE | 2020-12-29 13:08 | PCM.PN.HOSP ---
Subjective Subjective Patient was seen and examined. He complains of diarrhea, about 3 times today. His oxygen requirement has worsened, currently saturating on 14 L. He denied any chest discomfort. Objective Data Objective Data Vital Signs: Vital Signs Temp Pulse Resp BP Pulse Ox 99.2 F H 72 16 123/78 H 96 12/29/20 08:22 12/29/20 10:36 12/29/20 10:36 12/29/20 08:22 12/29/20 10:36 Oxygen Flow Rate (L/min) 9 Oxygen Delivery Method Nasal Cannula Weight: 85.5 kg Body Mass Index (BMI) 26.8 Intake & Output: Intake and Output for Last 24 Hours 12/27/20 12/28/20 12/29/20 23:59 23:59 23:59 Intake Total 990 / 990 2029 / 2029 Output Total 300 / 300 750 / 750 Balance 690 / 690 1280 / 1280 Lab / Micro Data Result Diagrams: 12/29/20 08:12 12/29/20 08:12 Labs: Laboratory Results - last 24 hr 12/29/20 08:12: WBC 8.4, RBC 4.45 L, Hgb 13.5, Hct 41.0, MCV 92.1, MCH 30.3, MCHC 32.9, RDW Std Deviation 39.5, RDW Coeff of [place] 11.7, Plt Count 422, MPV 9.6, Immature Gran % (Auto) 0.900, Neut % (Auto) 84.3 H, Lymph % (Auto) 12.0 L, [place] % (Auto) 2.6, Eos % (Auto) 0.1, Baso % (Auto) 0.1, Absolute Neuts (auto) 7.1, Absolute Lymphs (auto) 1.01, Nucleated RBC % 0 12/29/20 08:12: Sodium 137, Potassium 4.2, Chloride 103, Carbon Dioxide 30.0, Anion Gap 4 L, BUN 12, Creatinine 0.95, Estim Creat Clear Calc 106.73, Est GFR (MDRD) Af Amer 112, Est GFR (MDRD) Non-Af 93, BUN/Creatinine Ratio 12.6, Glucose 89, Calcium 8.3 L Micro: Microbiology 12/27/20 12:00 Nasal Secretion SARS-CoV-2 Antigen (Rapid) - Final SARS-CoV-2 (COVID 19) Physical Exam Narrative Physical exam: General: Alert, Oriented x3, Cooperative, in mild respiratory distress, on 14 L of oxygen, Well developed HEENT: Atraumatic Oral: Moist Mucosa Neck: Supple Lungs: Diminished in all lung zones Cardiovascular: HS I+II, regular, no murmurs Abdomen: Bowel Sounds Present, Soft, Non Tender Extremities: No edema Assessment & Plan Assessment/Plan (1) Acute respiratory failure with hypoxia: (2) COVID-19: PLAN: 1. Acute hypoxic respiratory failure secondary to COVID-19 pneumonia/asthma exacerbation Currently on 13-14 L of oxygen Admitting chest x-ray and CTA of the chest shows bilateral multifocal pneumonia. No PE Continue on dexamethasone, breathing treatments 2. Acute diarrhea likely secondary to COVID-19 infection Will check enteric panel, Imodium as needed Charges/Coding Visit Charges Inpatient E&M: 94663 Subs Hosp L3
[2020-12-29] MEDS: Furosemide 40 MG/4 ML Vial IV (13:34)
[2020-12-29] MEDS: 0.9% Saline Lock 10 ML Syringe IV (13:34)
--- NOTE | 2020-12-29 16:05 | RAD_ITS ---
STUDY: X-RAY CHEST REASON FOR EXAM: Male, 40 years old. Worsening hypoxia with Covid TECHNIQUE: Single AP portable view of the chest. COMPARISON: 12/27/2020 FINDINGS: There are superimposed monitor leads. There is no demonstrated pneumothorax. Slight increase in size and density of previously seen faint peripheral-based infiltrates. There is no demonstrated pleural abnormality. Normal size heart. Normal mediastinum and loi. Normal visualized pulmonary arteries. Normal visualized aortic arch and descending thoracic aorta. Normal visualized thoracic spine. Normal visualized ribs, clavicles, and shoulders. There is no demonstrated abnormality of the visualized soft tissue structures of the upper abdomen. RAD/Chest 1 View (Portable) IMPRESSION: Worsening of multifocal pneumonia. Imaging features can be seen with covid 19 pneumonia, but are nonspecific and may occur with a variety of infectious and noninfectious processes. Electronically Signed: Heide Scott MD at 3:20 EDT , Service support ,
--- NOTE | 2020-12-29 16:06 | PCM.PN.INT ---
Assessment & Plan Assessment/Plan (1) Acute respiratory failure with hypoxia: (2) COVID-19: PLAN: RECOMMENDATIONS: 1. Continue supportive care with supplemental oxygen to maintain saturations at or above 90%. 2. Continue Decadron to complete 10-day treatment course. 3. Continue Lovenox twice daily. 4. Consider initiation of remdesivir 5. Continue bronchodilators. 6. Encourage incentive spirometer use and mobilize patient as tolerated. 7. Awake prone positioning was strongly encouraged. 8. Obtain chest x-ray. Possible vest for pulmonary toileting IMPRESSIONS: 1. Acute hypoxemic respiratory failure secondary to COVID-19 pneumonia The patient presented to the hospital with progressive dyspnea in the setting of COVID-19, with symptom onset sometime around December 17. The patient is unvaccinated. CTA chest showed no evidence for PE. The patient has been started on appropriate therapy with remdesivir and Decadron, which will be continued without change. Continue supplemental oxygen and wean to maintain saturations at or above 90%. Continue bronchodilator therapy. Continue Lovenox twice daily. Patient with acute worsening today despite feeling better. Clinical suspicion for mucous plugging. Will obtain a chest x-ray to evaluate for lobar collapse. If present, initiation of vest therapy would be indicated. Patient has received Lasix. This can be continued if no lobar collapse is appreciated. 2. Self-reported history of asthma Continue bronchodilator therapy as ordered. Patient is on Decadron and bronchodilators. This note was generated with [employer] dictation software. It may contain incorrect words, spelling, and punctuation that were not noted in checking the note before signing. Subjective Subjective Patient overall feels subjectively improved compared to yesterday. However, patient is gone from 9 L to 14 L nasal cannula to maintain saturations. Patient is not reporting any chest pain, abdominal pain, nausea or vomiting. Patient states he has been compliant with incentive spirometer, but has not been using Acapella very often. Objective Data Objective Data Vital Signs: Vital Signs Temp Pulse Resp BP Pulse Ox 37.3 C H 81 16 123/78 H 90 12/29/20 08:22 12/29/20 14:49 12/29/20 10:36 12/29/20 08:22 12/29/20 13:00 Oxygen Flow Rate (L/min) 13 Oxygen Delivery Method Nasal Cannula Weight: 85.5 kg Body Mass Index (BMI) 26.8 Intake & Output: Intake and Output for Last 24 Hours 12/27/20 12/28/20 12/29/20 23:59 23:59 23:59 Intake Total 990 / 990 2029 / 2030 400 / 400 Output Total 300 / 300 750 / 750 Balance 690 / 690 1280 / 1280 400 / 400 Lab / Micro Data Result Diagrams: 12/29/20 08:12 12/29/20 08:12 Labs: Laboratory Results - last 24 hr 12/29/20 08:12: WBC 8.4, RBC 4.45 L, Hgb 13.5, Hct 41.0, MCV 92.1, MCH 30.3, MCHC 32.9, RDW Std Deviation 39.5, RDW Coeff of [place] 11.7, Plt Count 422, MPV 9.6, Immature Gran % (Auto) 0.900, Neut % (Auto) 84.3 H, Lymph % (Auto) 12.0 L, [place] % (Auto) 2.6, Eos % (Auto) 0.1, Baso % (Auto) 0.1, Absolute Neuts (auto) 7.1, Absolute Lymphs (auto) 1.01, Nucleated RBC % 0 12/29/20 08:12: Sodium 137, Potassium 4.2, Chloride 103, Carbon Dioxide 30.0, Anion Gap 4 L, BUN 12, Creatinine 0.95, Estim Creat Clear Calc 106.73, Est GFR (MDRD) Af Amer 112, Est GFR (MDRD) Non-Af 93, BUN/Creatinine Ratio 12.6, Glucose 89, Calcium 8.3 L Micro: Microbiology 12/27/20 12:00 Nasal Secretion SARS-CoV-2 Antigen (Rapid) - Final SARS-CoV-2 (COVID 19) Physical Exam Const alert, oriented x3 and no apparent distress General Appearance: cooperative HEENT normocephalic, head/scalp atraumatic and moist oral mucous membranes Eyes PERRL, EOMs intact bilaterally and conjunctivae normal Neck supple General: trachea midline Chest inspection of chest normal Chest: symmetrical chest wall rise; Negative for crepitus Resp Resp Narrative: Significant dyspnea on exertion Auscultation: rales bilateral base and diminished lung sounds; Negative for rhonchi or wheezes Cardio regular rate and regular rhythm GI normal to inspection, nondistended, normoactive bowel sounds Extremity no clubbing, cyanosis or edema Skin no rashes or lesions noted Neuro oriented x3, CN's II-XII intact bilaterally, moves all extremities and no focal motor deficits Psych cooperative and affect normal Charges/Coding Visit Charges Inpatient E&M: 70645 Subs Hosp L3
--- NOTE | 2020-12-29 17:13 | CHAPLAIN ---
Type of Pastoral Visit ___ Initial Visit ___ Follow-up Visit ___ On-call Visit ___ General Patient Visit ___ Spiritual Assessment ___ Family Conference ___ Bereavement ___ Rapid Response ___ Code Blue _x__ Other (describe below) Pastoral Care Referral From ___ Patient _x__ Family ___ Nurse ___ Physician ___ Rn Psychiatric ___ Online Program Coordinator ___ Other (describe below) Sacrament/Intervention _x__ Active listening ___ Anointing ___ Advent ___ Bereavement ___ Communion ___ Donna exploration ___ ___ Life review _x__ Prayer ___ Reconciliation ___ Sacrament of Sick _x__ Supportive presence ___ Wedding ___ Other (describe below) Pastoral Comments patient is in isolation room; called into room by phone and pt answered; pt able to talk and says he is doing ok and staying positive; pt states that many people in his synagogue are praying for him; pt welcomes support and prayers; pt concern is for his family that he is seperated from at this time
--- NOTE | 2020-12-29 20:06 | PCS.PANDOC ---
PANDEMIC DOCUMENTATION INITIATED: Date: 12/15/2020 Time: 190
[2020-12-30] VITALS (30 sets, daily range): BP systolic 95–131; BP diastolic 63–93; PULSE 52–110; RESP 12–33; TEMP 36.2–38.2; O2SAT 89–99
[2020-12-30] MEDS: Ipratropium/Albuterol Sulfate 3 ML AMPUL.NEB INHALATION ×5 (03:04→22:47)
--- NOTE | 2020-12-30 05:34 | NURSING ---
This nurse called charge nurse to notify respiratory for this nurse because patient Sp02 86% on NC 14L. Had patient use acapella to help with opening the lungs stats started working it way up slowly. Patient stated need to go to the bathroom to use the toilet nurse assisted patient to the toilet and back to bed. Patient back in bed and using acapella again was able to get up to Spo2 up to 90% at 14L and destat again. Respiratory in room at this time setting up airvo and patient is on airvo at this time.
[2020-12-30] MEDS: dexAMETHasone 4 MG Tablet 6 MG PO (08:23)
[2020-12-30] MEDS: guaiFENesin 1,200 MG Tablet 1200 MG PO ×2 (08:23→22:36)
[2020-12-30] MEDS: Enoxaparin 30 MG/0.3 ML Syringe SC ×2 (08:23→22:36)
[2020-12-30] MEDS: Pantoprazole Sodium 40 MG Tablet PO (08:23)
[2020-12-30] MEDS: Acetaminophen 325 MG Tablet 650 MG PO ×2 (09:09→22:35)
[2020-12-30] MEDS: Furosemide 40 MG/4 ML Vial IV (12:38)
[2020-12-30] MEDS: 0.9% Saline Lock 10 ML Syringe IV ×2 (12:38→22:36)
--- NOTE | 2020-12-30 13:24 | NURSING ---
This RN called and gave report to REX Carvalho in ICU.
--- NOTE | 2020-12-30 13:26 | NURSING ---
This RN called and updated the pt's again today to let her know that the pt has been requiring more oxygen as the day has gone on and will be getting moved to ICU for closer monitoring.
--- NOTE | 2020-12-30 13:29 | PCM.PN.INT ---
Assessment & Plan Assessment/Plan (1) Acute respiratory failure with hypoxia: (2) COVID-19: PLAN: RECOMMENDATIONS: 1. Continue supportive care with supplemental oxygen to maintain saturations at or above 90%. 2. Continue Decadron to complete 10-day treatment course. 3. Continue Lovenox twice daily. 4. Hold on vest therapy for now 5. Continue bronchodilators. 6. Encourage incentive spirometer use and mobilize patient as tolerated. 7. Awake prone positioning was strongly encouraged. 8. Transition to the intensive care unit IMPRESSIONS: 1. Acute hypoxemic respiratory failure secondary to COVID-19 pneumonia The patient presented to the hospital with progressive dyspnea in the setting of COVID-19, with symptom onset sometime around December 17. The patient is unvaccinated. CTA chest showed no evidence for PE earlier in the hospitalization. The patient has been started on appropriate therapy with remdesivir and Decadron, which will be continued without change. Continue supplemental oxygen and wean to maintain saturations at or above 90%. Continue bronchodilator therapy. Continue Lovenox twice daily. Patient with acute worsening today despite feeling better. Chest x-ray did not show a lobar collapse. Patient did receive Lasix yesterday with negative fluid balance, but continues to have hypoxia. Will transition patient to the intensive care unit for possible BiPAP rescue. 2. Self-reported history of asthma Continue bronchodilator therapy as ordered. Patient is on Decadron and bronchodilators. This note was generated with [employer] dictation software. It may contain incorrect words, spelling, and punctuation that were not noted in checking the note before signing. Subjective Subjective Patient overall feels subjectively unchanged compared to yesterday. Patient continues to have a cough with little production. However, patient has progressively become more hypoxic requiring 93% by high flow nasal cannula oxygen to maintain saturations. Patient is not reporting any nausea, vomiting or diarrhea. No chest pain or hemoptysis has been reported. Objective Data Objective Data Vital Signs: Vital Signs Temp Pulse Resp BP Pulse Ox 37.1 C 77 32 H 125/86 H 91 12/30/20 13:00 12/30/20 13:00 12/30/20 13:00 12/30/20 13:00 12/30/20 13:00 Oxygen Flow Rate (L/min) 60 Oxygen Delivery Method Airvo Weight: 85 kg Body Mass Index (BMI) 26.8 Intake & Output: Intake and Output for Last 24 Hours 12/28/20 12/29/20 12/30/20 23:59 23:59 23:59 Intake Total 2029 / 2029 900 / 900 600 / 600 Output Total 750 / 750 1850 / 1850 Balance 1280 / 1280 -950 / -950 600 / 600 Lab / Micro Data Result Diagrams: 12/29/20 08:12 12/29/20 08:12 Micro: Microbiology 12/27/20 12:00 Nasal Secretion SARS-CoV-2 Antigen (Rapid) - Final SARS-CoV-2 (COVID 19) Radiography Diagnostic Testing: Radiology Impression Chest X-Ray 12/29/20 16:05 IMPRESSION: Worsening of multifocal pneumonia. Imaging features can be seen with covid 19 pneumonia, but are nonspecific and may occur with a variety of infectious and noninfectious processes. Electronically Signed: Heide Scott MD at 3:20 EDT , Service support , Physical Exam Const alert and oriented x3 Constitutional Narrative: Some conversational dyspnea noted. General Appearance: cooperative HEENT normocephalic, head/scalp atraumatic and moist oral mucous membranes Eyes PERRL, EOMs intact bilaterally and conjunctivae normal Neck supple General: trachea midline Chest inspection of chest normal Chest: symmetrical chest wall rise; Negative for crepitus Resp Resp Narrative: Significant dyspnea on exertion Effort and Inspection: respiratory distress and actively coughing non-productive Auscultation: rales bilateral base and diminished lung sounds; Negative for rhonchi or wheezes Cardio regular rate and regular rhythm GI normal to inspection, nondistended, normoactive bowel sounds Extremity no clubbing, cyanosis or edema Skin no rashes or lesions noted Neuro oriented x3, CN's II-XII intact bilaterally, moves all extremities and no focal motor deficits Psych cooperative and affect normal Charges/Coding Visit Charges Inpatient E&M: 10876 Subs Hosp L3
--- NOTE | 2020-12-30 13:52 | PCM.PN.HOSP ---
Subjective Subjective Patient was seen and examined. Continues to have difficulty breathing. He was transferred to ICU and started on BiPAP. His diarrhea has improved Objective Data Objective Data Vital Signs: Vital Signs Temp Pulse Resp BP Pulse Ox 98.7 F 77 32 H 125/86 H 91 12/30/20 13:00 12/30/20 13:00 12/30/20 13:00 12/30/20 13:00 12/30/20 13:00 Oxygen Flow Rate (L/min) 60 Oxygen Delivery Method Airvo Weight: 85 kg Body Mass Index (BMI) 26.8 Intake & Output: Intake and Output for Last 24 Hours 12/28/20 12/29/20 12/30/20 23:59 23:59 23:59 Intake Total 2030 / 2030 900 / 900 600 / 600 Output Total 750 / 750 1850 / 1850 Balance 1280 / 1280 -950 / -950 600 / 600 Lab / Micro Data Result Diagrams: 12/29/20 08:12 12/29/20 08:12 Micro: Microbiology 12/27/20 12:00 Nasal Secretion SARS-CoV-2 Antigen (Rapid) - Final SARS-CoV-2 (COVID 19) Radiography Diagnostic Testing: Radiology Impression Chest X-Ray 12/29/20 16:05 IMPRESSION: Worsening of multifocal pneumonia. Imaging features can be seen with covid 19 pneumonia, but are nonspecific and may occur with a variety of infectious and noninfectious processes. Electronically Signed: Heide Scott MD at 3:20 EDT , Service support , Physical Exam Narrative Physical exam: General: Alert, Oriented x3, Cooperative, in mild respiratory distress HEENT: Atraumatic Oral: Moist Mucosa Neck: Supple Lungs: Diminished in all lung zones Cardiovascular: HS I+II, regular, no murmurs Abdomen: Bowel Sounds Present, Soft, Non Tender Extremities: No edema Assessment & Plan Assessment/Plan (1) Acute respiratory failure with hypoxia: (2) COVID-19: PLAN: 1. Acute hypoxic respiratory failure secondary to COVID-19 pneumonia/asthma exacerbation, worsening Admitting chest x-ray and CTA of the chest shows bilateral multifocal pneumonia. No PE Continue on dexamethasone, breathing treatments Transferred to ICU, continue on BiPAP Trial of Lasix 40 mg IV x1 2. Acute diarrhea likely secondary to COVID-19 infection Stool work-up pending, Imodium as needed Charges/Coding Visit Charges Inpatient E&M: 79908 Subs Hosp L3
[2020-12-30] MEDS: MELATONIN 3 MG TABLET PO (22:36)
[2020-12-31] VITALS (37 sets, daily range): BP systolic 98–132; BP diastolic 66–98; PULSE 50–99; RESP 12–29; TEMP 36.1–37; O2SAT 89–96
[2020-12-31] MEDS: Ipratropium/Albuterol Sulfate 3 ML AMPUL.NEB INHALATION ×5 (03:38→23:01)
[2020-12-31 05:06] LABS: Absolute Lymphocyte Count 0.84 X10^3/uL (0.83-4.51); Absolute Neutrophil Count 8.7 X10^3/uL (2.0-7.7); Basophil# 0.01 X10^3/uL; Basophil% 0.1 % (0-1); Eosinophil# 0.02 X10^3/uL; Eosinophils% 0.2 % (0-5); Hematocrit 40.8 % (40-54); Hemoglobin 13.8 g/dL (13.0-16.5); Lymphocyte # 0.84 X10^3/ul (0.83-4.51); Lymphocyte % 8.5 % (19-41); Mean Corp Hgb Conc 33.8 g/dL (32-36); Mean Corpuscular Hgb 30.5 pg (27.0-32.0); Mean Corpuscular Volume 90.1 fL (80-94); Mean Platelet Vol. 9.6 fl (6.2-12.0); Monocyte# 0.17 X10^3/uL; Monocyte% 1.7 % (0-10); NRBC Flagged by Analyzer 0 % (0-5); Neutrophil # 8.71 X10^3/uL (2.7-7.7); Neutrophil % 88.7 % (47-70); POSITIVE MORPHOLOGY YES; Platelet Count 491 K/mm3 (150-450); RBC Distribution Width CV 11.4 % (11.6-14.6); RBC Distribution Width SD 37.7 fl (35.1-43.9); Red Blood Count 4.53 M/mm3 (4.6-6.2); White Blood Count 9.8 K/mm3 (4.4-11.0)
[2020-12-31 05:09] LABS: Differential Indicated SCAN CRITERIA MET
[2020-12-31 05:25] LABS: ALB/GLOB Ratio 0.5 RATIO (0.9-2.4); AST(SGOT) 36 U/L (15-37); Alanine Aminotransfer ALT/SGPT 84 U/L (16-61); Albumin, Serum 2.4 g/dL (3.2-5.0); Alkaline Phosphatase 68 U/L (45-117); Anion Gap 6 (5-15); BUN 17 mg/dL (7-18); BUN/Creat Ratio 19.7 RATIO (10-20); Calcium,Total 8.5 mg/dL (8.5-10.1); Chloride 99 mmol/L (98-107); Creatinine, Serum 0.86 mg/dL (0.70-1.30); EST Glomerular Filtration Rate 104 mL/min (>60); Est Glom Filt Rate - Afr Amer 125 mL/min (>60); Estimated Creatinine Clearance 117.89 ml/min; Globulin 4.9 g/dL (2.2-4.2); Glucose 117 mg/dL (74-106); Potassium 4.2 mmol/L (3.5-5.1); Protein, Total 7.3 g/dL (6.4-8.2); Sodium Level 134 mmol/L (136-145)
[2020-12-31 05:33] LABS: Differential Comment SCANNED
[2020-12-31] MEDS: 0.9% Saline Lock 10 ML Syringe IV ×2 (06:16→08:00)
[2020-12-31] MEDS: Furosemide 40 MG/4 ML Vial IV (06:16)
[2020-12-31] MEDS: CHLORHEXIDINE GLUC 2% CLOTH 1 EACH TOWELETTE TOPICAL (08:00)
[2020-12-31] MEDS: Enoxaparin 30 MG/0.3 ML Syringe SC ×2 (08:00→20:06)
[2020-12-31] MEDS: Pantoprazole Sodium 40 MG Tablet PO (08:00)
[2020-12-31] MEDS: guaiFENesin 1,200 MG Tablet 1200 MG PO (08:00)
[2020-12-31] MEDS: dexAMETHasone 4 MG Tablet 6 MG PO (08:00)
--- NOTE | 2020-12-31 08:30 | PN.CC_ITS ---
Assessment & Plan Assessment/Plan (1) Acute respiratory failure with hypoxia: (2) COVID-19: PLAN: RECOMMENDATIONS: 1. Continue supportive care with supplemental oxygen to maintain saturations at or above 90%. 2. Continue Decadron to complete 10-day treatment course. 3. Continue Lovenox twice daily. 4. Diuretic challenge 5. Continue bronchodilators. 6. Encourage incentive spirometer use and mobilize patient as tolerated. 7. Awake prone positioning was strongly encouraged. 8. Increase EPAP IMPRESSIONS: 1. Acute hypoxemic respiratory failure secondary to COVID-19 pneumonia The patient presented to the hospital with progressive dyspnea in the setting of COVID-19, with symptom onset sometime around December 17. The patient is unvaccinated. CTA chest showed no evidence for PE earlier in the hospitalization. The patient has been started on appropriate therapy with remdesivir and Decadron, which will be continued without change. Continue supplemental oxygen and wean to maintain saturations at or above 90%. Continue bronchodilator therapy. Continue Lovenox twice daily. Patient with continued progression of disease. Will increase the EPAP to help with oxygenation. Continue to wean oxygen as tolerated. Cannot exclude the need for intubation in the next 24 to 48 hours. Lasix will be given as tolerated by labs. 2. Self-reported history of asthma Continue bronchodilator therapy as ordered. Patient is on Decadron and bronchodilators. TIME: 32 minutes critical care time spent addressing patient's acute hypoxic respiratory failure, asthma, review of all data and collaboration with care team (7:30 AM to 8:30 AM) Subjective Subjective Patient has required BiPAP since being moved to the intensive care unit. Patient did have a mild fever overnight. Patient overall feels subjectively unchanged compared to yesterday. Patient is not reporting any epistaxis or pain at the BiPAP site. Patient continues to have a nonproductive cough. Objective Data Objective Data Vital Signs: Vital Signs Temp Pulse Resp BP Pulse Ox 36.1 C L 81 19 H 107/82 H 91 12/31/20 08:00 12/31/20 08:00 12/31/20 08:00 12/31/20 08:00 12/31/20 08:00 Oxygen Flow Rate (L/min) 60 Oxygen Delivery Method Bi-pap Weight: 84.1 kg Body Mass Index (BMI) 26.8 Intake & Output: Intake and Output for Last 24 Hours 12/29/20 12/30/20 12/31/20 23:59 23:59 23:59 Intake Total 900 / 900 1080 / 1080 240 / 240 Output Total 1850 / 1850 800 / 800 875 / 875 Balance -950 / -950 280 / 280 -635 / -635 Lab / Micro Data Result Diagrams: 12/31/20 04:45 12/31/20 04:45 Labs: Laboratory Results - last 24 hr 12/31/20 04:45: WBC 9.8, RBC 4.53 L, Hgb 13.8, Hct 40.8, MCV 90.1, MCH 30.5, MCHC 33.8, RDW Std Deviation 37.7, RDW Coeff of [place] 11.4 L, Plt Count 491 H, MPV 9.6, Immature Gran % (Auto) 0.800, Neut % (Auto) 88.7 H, Lymph % (Auto) 8.5 L, [place] % (Auto) 1.7, Eos % (Auto) 0.2, Baso % (Auto) 0.1, Absolute Neuts (auto) 8.7 H, Absolute Lymphs (auto) 0.84, Nucleated RBC % 0, Differential Comment SCANNED 12/31/20 04:45: Sodium 134 L, Potassium 4.2, Chloride 99, Carbon Dioxide 29.0, Anion Gap 6, BUN 17, Creatinine 0.86, Estim Creat Clear Calc 117.89, Est GFR (MDRD) Af Amer 125, Est GFR (MDRD) Non-Af 104, BUN/Creatinine Ratio 19.7, Glucose 117 H, Calcium 8.5, Total Bilirubin 0.90, AST 36, ALT 84 H, Alkaline Phosphatase 68, Total Protein 7.3, Albumin 2.4 L, Globulin 4.9 H, Albumin/Glob ulin Ratio 0.5 L Micro: Microbiology 12/27/20 12:00 Nasal Secretion SARS-CoV-2 Antigen (Rapid) - Final SARS-CoV-2 (COVID 19) Physical Exam Const alert and oriented x3 Constitutional Narrative: Some conversational dyspnea noted. General Appearance: cooperative and on BiPAP HEENT normocephalic, head/scalp atraumatic and moist oral mucous membranes Eyes PERRL, EOMs intact bilaterally and conjunctivae normal Neck supple General: trachea midline Chest inspection of chest normal Chest: symmetrical chest wall rise; Negative for crepitus Resp normal respiratory effort Resp Narrative: Significant dyspnea with any exertion Effort and Inspection: respiratory distress and actively coughing non-productive Auscultation: rales bilateral base and diminished lung sounds; Negative for rhonchi or wheezes Cardio regular rate and regular rhythm GI normal to inspection, nondistended, normoactive bowel sounds Extremity no clubbing, cyanosis or edema Skin no rashes or lesions noted Neuro oriented x3, CN's II-XII intact bilaterally, moves all extremities and no focal motor deficits Psych cooperative and affect normal Charges/Coding Procedures Hospitalists Procedures: [id number] Critial Care 1st Hr
--- NOTE | 2020-12-31 09:27 | NURSING ---
patient up to chair on bipap, attempted airvo 60L/93%, after approx 20 minutes patient reached 84% however dropped to 78%, placed back on bipap requiring 100% FiO2, after a few minutes patient recovered to 90%, will cont to monitor, Dr. Higgins made aware, respiratory notified.
--- NOTE | 2020-12-31 13:01 | PN.HOSP_ITS ---
Subjective Subjective Patient was seen and examined. His respiratory status worsened. He was started on BiPAP. Objective Data Objective Data Vital Signs: Vital Signs Temp Pulse Resp BP Pulse Ox 97.1 F L 77 17 112/86 H 96 12/31/20 12:00 12/31/20 12:00 12/31/20 12:00 12/31/20 12:00 12/31/20 12:00 Oxygen Flow Rate (L/min) 60 Oxygen Delivery Method Bi-pap Weight: 84.1 kg Body Mass Index (BMI) 26.8 Intake & Output: Intake and Output for Last 24 Hours 12/29/20 12/30/20 12/31/20 23:59 23:59 23:59 Intake Total 900 / 900 1080 / 1080 300 / 300 Output Total 1850 / 1850 800 / 800 1275 / 1275 Balance -950 / -950 280 / 280 -975 / -975 Lab / Micro Data Result Diagrams: 12/31/20 04:45 12/31/20 04:45 Labs: Laboratory Results - last 24 hr 12/31/20 04:45: WBC 9.8, RBC 4.53 L, Hgb 13.8, Hct 40.8, MCV 90.1, MCH 30.5, MCHC 33.8, RDW Std Deviation 37.7, RDW Coeff of [place] 11.4 L, Plt Count 491 H, MPV 9.6, Immature Gran % (Auto) 0.800, Neut % (Auto) 88.7 H, Lymph % (Auto) 8.5 L, [place] % (Auto) 1.7, Eos % (Auto) 0.2, Baso % (Auto) 0.1, Absolute Neuts (auto) 8.7 H, Absolute Lymphs (auto) 0.84, Nucleated RBC % 0, Differential Comment SCANNED 12/31/20 04:45: Sodium 134 L, Potassium 4.2, Chloride 99, Carbon Dioxide 29.0, Anion Gap 6, BUN 17, Creatinine 0.86, Estim Creat Clear Calc 117.89, Est GFR (MDRD) Af Amer 125, Est GFR (MDRD) Non-Af 104, BUN/Creatinine Ratio 19.7, Glucose 117 H, Calcium 8.5, Total Bilirubin 0.90, AST 36, ALT 84 H, Alkaline Phosphatase 68, Total Protein 7.3, Albumin 2.4 L, Globulin 4.9 H, Albumin/Globulin Ratio 0.5 L Micro: Microbiology 12/27/20 12:00 Nasal Secretion SARS-CoV-2 Antigen (Rapid) - Final SARS-CoV-2 (COVID 19) Physical Exam Narrative Physical exam: General: Alert, Oriented x3, Cooperative, in moderate respiratory distress, on BiPAP HEENT: Atraumatic Oral: Moist Mucosa Neck: Supple Lungs: Diminished in all lung zones Cardiovascular: HS I+II, regular, no murmurs Abdomen: Bowel Sounds Present, Soft, Non Tender Extremities: No edema Assessment & Plan Assessment/Plan (1) Acute respiratory failure with hypoxia: (2) COVID-19: PLAN: 1. Acute hypoxic respiratory failure secondary to COVID-19 pneumonia/asthma exacerbation, worsening Admitting chest x-ray and CTA of the chest shows bilateral multifocal pneumonia. No PE Continue on dexamethasone, breathing treatments Continue on BiPAP/Airvo repeat trial of Lasix 2. Acute diarrhea likely secondary to COVID-19 infection, resolved Charges/Coding Visit Charges Inpatient E&M: 53852 Subs Hosp L2
--- NOTE | 2020-12-31 13:22 | CASEMGMT ---
REX SHAW NOTE: Pt screened with [facility] Palliative Care Screening Tool for strata 3, pt did not meet criteria. Ar GARRETTN RN CM
--- NOTE | 2020-12-31 15:57 | CHAPLAIN ---
Type of Pastoral Visit ___ Initial Visit ___ Follow-up Visit ___ On-call Visit _x__ General Patient Visit ___ Spiritual Assessment ___ Family Conference ___ Bereavement ___ Rapid Response ___ Code Blue ___ Other (describe below) Pastoral Care Referral From _x__ Patient _x__ Family _x__ Nurse ___ Physician ___ Dispatch Officer ___ Complaint Specialist ___ Other (describe below) Sacrament/Intervention _x__ Active listening ___ Anointing ___ Pentecostal ___ Bereavement ___ Communion ___ Donna exploration ___ ___ Life review _x__ Prayer ___ Reconciliation ___ Sacrament of Sick _x__ Supportive presence ___ Wedding ___ Other (describe below) Pastoral Comments support requested by RN, family, and patient; pt had not made improvements and family will be coming in to see him; went into room to sit with patient as he waits for family; support, presence, and prayer offered and received; pt is young and optimistic but also concerned for his family and their well being; met with family later when they arrived to see patient; offer of support and presence given to them at this time
[2021-01-01] VITALS (35 sets, daily range): BP systolic 100–119; BP diastolic 67–91; PULSE 45–88; RESP 12–32; TEMP 36.2–36.6; O2SAT 91–98
[2021-01-01 04:59] LABS: Absolute Lymphocyte Count 1.07 X10^3/uL (0.83-4.51); Absolute Neutrophil Count 6.8 X10^3/uL (2.0-7.7); Basophil# 0.01 X10^3/uL; Basophil% 0.1 % (0-1); Eosinophil# 0.01 X10^3/uL; Eosinophils% 0.1 % (0-5); Hematocrit 41.6 % (40-54); Hemoglobin 13.8 g/dL (13.0-16.5); Lymphocyte # 1.07 X10^3/ul (0.83-4.51); Mean Corp Hgb Conc 33.2 g/dL (32-36); Mean Corpuscular Hgb 30.1 pg (27.0-32.0); Mean Corpuscular Volume 90.6 fL (80-94); Mean Platelet Vol. 9.7 fl (6.2-12.0); Monocyte# 0.27 X10^3/uL; Monocyte% 3.3 % (0-10); NRBC Flagged by Analyzer 0 % (0-5); Neutrophil # 6.77 X10^3/uL (2.7-7.7); Neutrophil % 82.2 % (47-70); Platelet Count 489 K/mm3 (150-450); RBC Distribution Width CV 11.3 % (11.6-14.6); RBC Distribution Width SD 37.7 fl (35.1-43.9); Red Blood Count 4.59 M/mm3 (4.6-6.2); White Blood Count 8.2 K/mm3 (4.4-11.0)
[2021-01-01 05:16] LABS: ALB/GLOB Ratio 0.4 RATIO (0.9-2.4); AST(SGOT) 19 U/L (15-37); Alanine Aminotransfer ALT/SGPT 62 U/L (16-61); Albumin, Serum 2.3 g/dL (3.2-5.0); Alkaline Phosphatase 57 U/L (45-117); Anion Gap 6 (5-15); BUN 26 mg/dL (7-18); Calcium,Total 8.9 mg/dL (8.5-10.1); Chloride 96 mmol/L (98-107); EST Glomerular Filtration Rate 88 mL/min (>60); Est Glom Filt Rate - Afr Amer 106 mL/min (>60); Estimated Creatinine Clearance 101.39 ml/min; Globulin 5.2 g/dL (2.2-4.2); Glucose 115 mg/dL (74-106); Potassium 4.1 mmol/L (3.5-5.1); Protein, Total 7.5 g/dL (6.4-8.2); Sodium Level 135 mmol/L (136-145)
[2021-01-01] MEDS: Ipratropium/Albuterol Sulfate 3 ML AMPUL.NEB INHALATION ×5 (07:29→22:50)
[2021-01-01] MEDS: Enoxaparin 30 MG/0.3 ML Syringe SC ×2 (08:01→20:57)
[2021-01-01] MEDS: guaiFENesin 1,200 MG Tablet 1200 MG PO ×2 (08:01→20:58)
[2021-01-01] MEDS: 0.9% Saline Lock 10 ML Syringe IV (08:02)
[2021-01-01] MEDS: Pantoprazole Sodium 40 MG Tablet PO (08:02)
[2021-01-01] MEDS: dexAMETHasone 4 MG Tablet 6 MG PO (08:02)
--- NOTE | 2021-01-01 10:05 | PN.CC_ITS ---
Assessment & Plan Assessment/Plan (1) Acute respiratory failure with hypoxia: (2) COVID-19: PLAN: RECOMMENDATIONS: 1. Continue supportive care with supplemental oxygen to maintain saturations at or above 90%. 2. Continue Decadron to complete 10-day treatment course. 3. Continue Lovenox twice daily. 4. Diuretic challenge as permitted by labs 5. Continue bronchodilators. 6. Encourage incentive spirometer use and mobilize patient as tolerated. 7. Awake prone positioning was strongly encouraged. 8. Increase EPAP on nocturnal BiPAP IMPRESSIONS: 1. Acute hypoxemic respiratory failure secondary to COVID-19 pneumonia The patient presented to the hospital with progressive dyspnea in the setting of COVID-19, with symptom onset sometime around December 17. The patient is unvaccinated. CTA chest showed no evidence for PE earlier in the hospitalization. The patient has been started on appropriate therapy with remde sivir and Decadron, which will be continued without change. Continue supplemental oxygen and wean to maintain saturations at or above 90%. Continue bronchodilator therapy. Continue Lovenox twice daily. Patient with continued progression of disease. Continue elevated EPAP while sleeping. Continue to wean oxygen as tolerated. Cannot exclude the need for intubation in the next 24 to 48 hours. Lasix will be given as tolerated by labs. Aggressive pulmonary toileting 2. Self-reported history of asthma Continue bronchodilator therapy as ordered. Patient is on Decadron and bronchodilators. TIME: 33 minutes critical care time spent addressing patient's acute hypoxic respiratory failure, asthma, review of all data and collaboration with care team (6 AM to 7 AM) Subjective Subjective Patient did okay overnight. No acute issues were reported. Patient continues to report a cough that is relatively nonproductive. Patient was able to be transitioned to Airvo and appears to be tolerating well. Patient was able to be moved to the chair, but desaturated significantly with ambulation. Objective Data Objective Data Vital Signs: Vital Signs Temp Pulse Resp BP Pulse Ox 36.5 C L 68 20 H 100/84 H 91 01/01/21 04:00 01/01/21 07:30 01/01/21 07:30 01/01/21 06:00 01/01/21 06:00 Oxygen Flow Rate (L/min) 60 Oxygen Delivery Method Bi-pap Weight: 83.6 kg Body Mass Index (BMI) 26.8 Intake & Output: Intake and Output for Last 24 Hours 12/30/20 12/31/20 01/01/21 23:59 23:59 23:59 Intake Total 1080 / 1080 360 / 360 Output Total 800 / 800 2675 / 2875 200 / 200 Balance 280 / 280 -2315 / -2515 -200 / -200 Lab / Micro Data Result Diagrams: 01/01/21 04:30 01/01/21 04:30 Labs: Laboratory Results - last 24 hr 01/01/21 04:30: WBC 8.2, RBC 4.59 L, Hgb 13.8, Hct 41.6, MCV 90.6, MCH 30.1, MCHC 33.2, RDW Std Deviation 37.7, RDW Coeff of [place] 11.3 L, Plt Count 489 H, MPV 9.7, Immature Gran % (Auto) 1.300 H, Neut % (Auto) 82.2 H, Lymph % (Auto) 13.0 L , [place] % (Auto) 3.3, Eos % (Auto) 0.1, Baso % (Auto) 0.1, Absolute Neuts (auto) 6.8, Absolute Lymphs (auto) 1.07, Nucleated RBC % 0 01/01/21 04:30: Sodium 135 L, Potassium 4.1, Chloride 96 L, Carbon Dioxide 33.0 H, Anion Gap 6, BUN 26 H, Creatinine 1.00, Estim Creat Clear Calc 101.39, Est GFR (MDRD) Af Amer 106, Est GFR (MDRD) Non-Af 88, BUN/Creatinine Ratio 26.0 H, Glucose 115 H, Calcium 8.9, Total Bilirubin 0.70, AST 19, ALT 62 H, Alkaline Phosphatase 57, Total Protein 7.5, Albumin 2.3 L, Globulin 5.2 H, Albumin/Globulin Ratio 0.4 L Micro: Microbiology 12/27/20 12:00 Nasal Secretion SARS-CoV-2 Antigen (Rapid) - Final SARS-CoV-2 (COVID 19) Physical Exam Const alert and oriented x3 Constitutional Narrative: Some conversational dyspnea noted. On Airvo General Appearance: cooperative HEENT normocephalic, head/scalp atraumatic and moist oral mucous membranes Eyes PERRL, EOMs intact bilaterally and conjunctivae normal Neck supple General: trachea midline Chest inspection of chest normal Chest: symmetrical chest wall rise; Negative for crepitus Resp normal respiratory effort Resp Narrative: Significant dyspnea with any exertion Effort and Inspection: respiratory distress and actively coughing non-productive Auscultation: rales bilateral base and diminished lung sounds; Negative for rhonchi or wheezes Cardio regular rate and regular rhythm GI normal to inspection, nondistended, normoactive bowel sounds Extremity no clubbing, cyanosis or edema Skin Skin Narrative: Pressure injury noted on the lip. Neuro oriented x3, CN's II-XII intact bilaterally, moves all extremities and no focal motor deficits Psych cooperative and affect normal Charges/Coding Procedures Hospitalists Procedures: [id number] Critial Care 1st Hr
--- NOTE | 2021-01-01 10:44 | PN.HOSP_ITS ---
Objective Data Objective Data Vital Signs: Vital Signs Temp Pulse Resp BP Pulse Ox 97.7 F L 64 20 H 100/84 H 98 01/01/21 04:00 01/01/21 10:11 01/01/21 10:11 01/01/21 06:00 01/01/21 10:10 Oxygen Flow Rate (L/min) 60 Oxygen Delivery Method Bi-pap Weight: 83.6 kg Body Mass Index (BMI) 26.8 Intake & Output: Intake and Output for Last 24 Hours 12/30/20 12/31/20 01/01/21 23:59 23:59 23:59 Intake Total 1080 / 1080 360 / 360 Output Total 800 / 800 2675 / 2875 200 / 200 Balance 280 / 280 -2315 / -2515 -200 / -200 Lab / Micro Data Result Diagrams: 01/01/21 04:30 01/01/21 04:30 Labs: Laboratory Results - last 24 hr 01/01/21 04:30: WBC 8.2, RBC 4.59 L, Hgb 13.8, Hct 41.6, MCV 90.6, MCH 30.1, MCHC 33.2, RDW Std Deviation 37.7, RDW Coeff of [place] 11.3 L, Plt Count 489 H, MPV 9.7, Immature Gran % (Auto) 1.300 H, Neut % (Auto) 82.2 H, Lymph % (Auto) 13.0 L , [place] % (Auto) 3.3, Eos % (Auto) 0.1, Baso % (Auto) 0.1, Absolute Neuts (auto) 6.8, Absolute Lymphs (auto) 1.07, Nucleated RBC % 0 01/01/21 04:30: Sodium 135 L, Potassium 4.1, Chloride 96 L, Carbon Dioxide 33.0 H, Anion Gap 6, BUN 26 H, Creatinine 1.00, Estim Creat Clear Calc 101.39, Est GFR (MDRD) Af Amer 106, Est GFR (MDRD) Non-Af 88, BUN/Creatinine Ratio 26.0 H, Glucose 115 H, Calcium 8.9, Total Bilirubin 0.70, AST 19, ALT 62 H, Alkaline Phosphatase 57, Total Protein 7.5, Albumin 2.3 L, Globulin 5.2 H, Albumin/Globulin Ratio 0.4 L Micro: Microbiology 12/27/20 12:00 Nasal Secretion SARS-CoV-2 Antigen (Rapid) - Final SARS-CoV-2 (COVID 19) Physical Exam Narrative Physical exam: General: Alert, Oriented x3, Cooperative, on Airvo HEENT: Atraumatic Oral: dry oral mucosa, cold sores on lips Neck: Supple Lungs: Diminished in all lung zones Cardiovascular: HS I+II, regular, no murmurs Abdomen: Bowel Sounds Present, Soft, Non Tender Extremities: No edema Assessment & Plan Assessment/Plan (1) Acute respiratory failure with hypoxia: (2) COVID-19: PLAN: 1. Acute hypoxic respiratory failure secondary to COVID-19 pneumonia/asthma exacerbation, worsening Admitting chest x-ray and CTA of the chest shows bilateral multifocal pneumonia. No PE Continue on dexamethasone, breathing treatments Continue on BiPAP/Airvo 2. Acute diarrhea likely secondary to COVID-19 infection, resolved Charges/Coding Visit Charges Inpatient E&M: 45517 Subs Hosp L3
[2021-01-01] MEDS: Acetaminophen 325 MG Tablet 650 MG PO (20:58)
[2021-01-01] MEDS: MELATONIN 3 MG TABLET PO (23:29)
[2021-01-02] VITALS (38 sets, daily range): BP systolic 103–128; BP diastolic 67–101; PULSE 48–101; RESP 12–28; TEMP 35.9–36.5; O2SAT 90–98
[2021-01-02] MEDS: Ipratropium/Albuterol Sulfate 3 ML AMPUL.NEB INHALATION ×6 (03:55→23:20)
[2021-01-02 05:34] LABS: Absolute Neutrophil Count 7.5 X10^3/uL (2.0-7.7); Basophil# 0.03 X10^3/uL; Basophil% 0.3 % (0-1); Eosinophil# 0.01 X10^3/uL; Eosinophils% 0.1 % (0-5); Hematocrit 43.8 % (40-54); Hemoglobin 14.5 g/dL (13.0-16.5); Mean Corp Hgb Conc 33.1 g/dL (32-36); Mean Corpuscular Hgb 30.1 pg (27.0-32.0); Mean Corpuscular Volume 91.1 fL (80-94); Mean Platelet Vol. 9.6 fl (6.2-12.0); Monocyte% 4.4 % (0-10); NRBC Flagged by Analyzer 0 % (0-5); Neutrophil # 7.54 X10^3/uL (2.7-7.7); Neutrophil % 83.1 % (47-70); Platelet Count 572 K/mm3 (150-450); RBC Distribution Width CV 11.2 % (11.6-14.6); RBC Distribution Width SD 37.7 fl (35.1-43.9); Red Blood Count 4.81 M/mm3 (4.6-6.2); White Blood Count 9.1 K/mm3 (4.4-11.0)
[2021-01-02 05:57] LABS: ALB/GLOB Ratio 0.5 RATIO (0.9-2.4); AST(SGOT) 18 U/L (15-37); Alanine Aminotransfer ALT/SGPT 57 U/L (16-61); Albumin, Serum 2.5 g/dL (3.2-5.0); Alkaline Phosphatase 60 U/L (45-117); Anion Gap 7 (5-15); BUN 23 mg/dL (7-18); BUN/Creat Ratio 25.2 RATIO (10-20); Calcium,Total 8.7 mg/dL (8.5-10.1); Chloride 95 mmol/L (98-107); Creatinine, Serum 0.91 mg/dL (0.70-1.30); EST Glomerular Filtration Rate 97 mL/min (>60); Est Glom Filt Rate - Afr Amer 118 mL/min (>60); Estimated Creatinine Clearance 111.42 ml/min; Globulin 5.4 g/dL (2.2-4.2); Glucose 108 mg/dL (74-106); Protein, Total 7.9 g/dL (6.4-8.2); Sodium Level 133 mmol/L (136-145)
--- NOTE | 2021-01-02 08:50 | PCM.PN.INT ---
Assessment & Plan Assessment/Plan (1) Acute respiratory failure with hypoxia: (2) COVID-19: PLAN: RECOMMENDATIONS: 1. Continue supportive care with supplemental oxygen to maintain saturations at or above 90%. 2. Continue Decadron to complete 10-day treatment course. 3. Continue Lovenox twice daily. 4. Diuretic challenge as permitted by labs 5. Continue bronchodilators. 6. Encourage incentive spirometer use and mobilize patient as tolerated. 7. Awake prone positioning was strongly encouraged. 8. If able to tolerate nasal cannula during the day, likely okay to discontinue BiPAP 9. Potential transfer from the intensive care unit later today IMPRESSIONS: 1. Acute hypoxemic respiratory failure secondary to COVID-19 pneumonia The patient presented to the hospital with progressive dyspnea in the setting of COVID-19, with symptom onset sometime around December 17. The patient is unvaccinated. CTA chest showed no evidence for PE earlier in the hospitalization. The patient has been started on appropriate therapy with remdesivir and Decadron, which will be continued without change. Continue supplemental oxygen and wean to maintain saturations at or above 90%. Continue bronchodilator therapy. Continue Lovenox twice daily. Patient with continued progression of disease. Patient much improved compared to previous. Continue to wean oxygen as tolerated. If patient is able to tolerate nasal cannula, may be able to discontinue BiPAP with sleep. This should help with his lip wound healing. 2. Self-reported history of asthma Continue bronchodilator therapy as ordered. Patient is on Decadron and bronchodilators. 3. Insomnia Clinical suspicion this is related to ICU level of care and acute illness. Will increase melatonin as a first choice. Seroquel will be offered if necessary. Will attempt to allow to visit to help with stress as this can also lead to insomnia. Subjective Subjective Patient did well overnight. No acute issues were reported outside of some insomnia. Patient was given melatonin, but did not feel this was overly effective. Patient subjectively feels slightly improved compared to yesterday. There is no chest pain reported. Patient does have a cough, but this is nonproductive. Objective Data Objective Data Vital Signs: Vital Signs Temp Pulse Resp BP Pulse Ox 35.9 C L 48 L 23 H 119/73 97 01/02/21 05:00 01/02/21 07:00 01/02/21 07:00 01/02/21 07:00 01/02/21 07:00 Oxygen Flow Rate (L/min) 48 Oxygen Delivery Method Bi-pap Weight: 85.2 kg Body Mass Index (BMI) 26.8 Intake & Output: Intake and Output for Last 24 Hours 12/31/20 01/01/21 01/02/21 23:59 23:59 23:59 Intake Total 360 / 360 830 / 950 480 / 480 Output Total 2675 / 2875 1650 / 1650 800 / 800 Balance -2315 / -2515 -820 / -700 -320 / -320 Lab / Micro Data Result Diagrams: 01/02/21 05:15 01/02/21 05:15 Labs: Laboratory Results - last 24 hr 01/02/21 05:15: WBC 9.1, RBC 4.81, Hgb 14.5, Hct 43.8, MCV 91.1, MCH 30.1, MCHC 33.1, RDW Std Deviation 37.7, RDW Coeff of [place] 11.2 L, Plt Count 572 H, MPV 9.6, Immature Gran % (Auto) 1.100 H, Neut % (Auto) 83.1 H, Lymph % (Auto) 11.0 L, [place] % (Auto) 4.4, Eos % (Auto) 0.1, Baso % (Auto) 0.3, Absolute Neuts (auto) 7.5, Absolute Lymphs (auto) 1.00, Nucleated RBC % 0 01/02/21 05:15: Sodium 133 L, Potassium 4.0, Chloride 95 L, Carbon Dioxide 31.0, Anion Gap 7, BUN 23 H, Creatinine 0.91, Estim Creat Clear Calc 111.42, Est GFR (MDRD) Af Amer 118, Est GFR (MDRD) Non-Af 97, BUN/Creatinine Ratio 25.2 H, Glucose 108 H, Calcium 8.7, Total Bilirubin 0.70, AST 18, ALT 57, Alkaline Phosphatase 60, Total Protein 7.9, Albumin 2.5 L, Globulin 5.4 H, Albumin/Globulin Ratio 0.5 L Micro: Microbiology 12/27/20 12:00 Nasal Secretion SARS-CoV-2 Antigen (Rapid) - Final SARS-CoV-2 (COVID 19) Physical Exam Const alert and oriented x3 Constitutional Narrative: Some conversational dyspnea noted. On Airvo General Appearance: cooperative HEENT normocephalic, head/scalp atraumatic and moist oral mucous membranes Eyes PERRL, EOMs intact bilaterally and conjunctivae normal Neck supple General: trachea midline Chest inspection of chest normal Chest: symmetrical chest wall rise; Negative for crepitus Resp normal respiratory effort Resp Narrative: Significant dyspnea with any exertion Effort and Inspection: respiratory distress and actively coughing non-productive Auscultation: rales bilateral base and diminished lung sounds; Negative for rhonchi or wheezes Cardio regular rate and regular rhythm GI normal to inspection, nondistended, normoactive bowel sounds Extremity no clubbing, cyanosis or edema Skin no rashes or lesions noted Skin Narrative: Pressure injury noted on the lip. Neuro oriented x3, CN's II-XII intact bilaterally, moves all extremities and no focal motor deficits Psych cooperative and affect normal Charges/Coding Visit Charges Inpatient E&M: 63831 Subs Hosp L3
[2021-01-02] MEDS: dexAMETHasone 4 MG Tablet 6 MG PO (09:48)
[2021-01-02] MEDS: Pantoprazole Sodium 40 MG Tablet PO (09:48)
[2021-01-02] MEDS: guaiFENesin 1,200 MG Tablet 1200 MG PO ×2 (09:48→20:49)
[2021-01-02] MEDS: Enoxaparin 30 MG/0.3 ML Syringe SC ×2 (09:48→20:49)
[2021-01-02] MEDS: Furosemide 40 MG/4 ML Vial IV (09:49)
--- NOTE | 2021-01-02 12:50 | PCM.PN.HOSP ---
Subjective Subjective Patient was seen and examined. Denied any new event. He has prominent sores on his lower lips suggestive of cold sores. He denies any fever or chills Objective Data Objective Data Vital Signs: Vital Signs Temp Pulse Resp BP Pulse Ox 97.5 F L 86 20 H 103/75 95 01/02/21 12:00 01/02/21 12:00 01/02/21 12:00 01/02/21 12:00 01/02/21 12:00 Oxygen Flow Rate (L/min) 8 Oxygen Delivery Method Nasal Cannula Weight: 85.2 kg Body Mass Index (BMI) 26.8 Intake & Output: Intake and Output for Last 24 Hours 12/31/20 01/01/21 01/02/21 23:59 23:59 23:59 Intake Total 360 / 360 830 / 950 720 / 720 Output Total 2675 / 2875 1650 / 1650 1999 / 1999 Balance -2315 / -2515 -820 / -700 -1280 / -1280 Lab / Micro Data Result Diagrams: 01/02/21 05:15 01/02/21 05:15 Labs: Laboratory Results - last 24 hr 01/02/21 05:15: WBC 9.1, RBC 4.81, Hgb 14.5, Hct 43.8, MCV 91.1, MCH 30.1, MCHC 33.1, RDW Std Deviation 37.7, RDW Coeff of [place] 11.2 L, Plt Count 572 H, MPV 9.6, Immature Gran % (Auto) 1.100 H, Neut % (Auto) 83.1 H, Lymph % (Auto) 11.0 L, [place] % (Auto) 4.4, Eos % (Auto) 0.1, Baso % (Auto) 0.3, Absolute Neuts (auto) 7.5, Absolute Lymphs (auto) 1.00, Nucleated RBC % 0 01/02/21 05:15: Sodium 133 L, Potassium 4.0, Chloride 95 L, Carbon Dioxide 31.0, Anion Gap 7, BUN 23 H, Creatinine 0.91, Estim Creat Clear Calc 111.42, Est GFR (MDRD) Af Amer 118, Est GFR (MDRD) Non-Af 97, BUN/Creatinine Ratio 25.2 H, Glucose 108 H, Calcium 8.7, Total Bilirubin 0.70, AST 18, ALT 57, Alkaline Phosphatase 60, Total Protein 7.9, Albumin 2.5 L, Globulin 5.4 H, Albumin/Globulin Ratio 0.5 L Micro: Microbiology 12/27/20 12:00 Nasal Secretion SARS-CoV-2 Antigen (Rapid) - Final SARS-CoV-2 (COVID 19) Physical Exam Narrative Physical exam: General: Alert, Oriented x3, Cooperative, on Airvo HEENT: Atraumatic Oral: dry oral mucosa, cold sores on lips Neck: Supple Lungs: Diminished in all lung zones Cardiovascular: HS I+II, regular, no murmurs Abdomen: Bowel Sounds Present, Soft, Non Tender Extremities: No edema Assessment & Plan Assessment/Plan (1) Acute respiratory failure with hypoxia: (2) COVID-19: PLAN: 1. Acute hypoxic respiratory failure secondary to COVID-19 pneumonia/asthma exacerbation, worsening Admitting chest x-ray and CTA of the chest shows bilateral multifocal pneumonia. No PE Continue on dexamethasone, breathing treatments Continue on BiPAP/Airvo 2. Possible acute herpes simples of lips, will start on topical acyclovir 3. Acute diarrhea likely secondary to COVID-19 infection, resolved Charges/Coding Visit Charges Inpatient E&M: 64767 Subs Hosp L3
[2021-01-02] MEDS: Acyclovir 5% Tube 1 APPLIC TOPICAL ×2 (16:59→20:49)
[2021-01-02] MEDS: MELATONIN 10 MG TABLET PO (20:49)
[2021-01-03] VITALS (32 sets, daily range): BP systolic 100–114; BP diastolic 69–83; PULSE 48–101; RESP 16–26; TEMP 35.7–36.8; O2SAT 91–98
[2021-01-03] MEDS: Albuterol 2.5 MG/3 ML VIAL.NEB. INHALATION (04:20)
[2021-01-03 04:28] LABS: Absolute Lymphocyte Count 1.04 X10^3/uL (0.83-4.51); Absolute Neutrophil Count 6.5 X10^3/uL (2.0-7.7); Basophil# 0.01 X10^3/uL; Basophil% 0.1 % (0-1); Hematocrit 40.2 % (40-54); Hemoglobin 13.6 g/dL (13.0-16.5); Lymphocyte # 1.04 X10^3/ul (0.83-4.51); Lymphocyte % 12.6 % (19-41); Mean Corp Hgb Conc 33.8 g/dL (32-36); Mean Corpuscular Hgb 30.4 pg (27.0-32.0); Mean Corpuscular Volume 89.9 fL (80-94); Mean Platelet Vol. 9.7 fl (6.2-12.0); Monocyte# 0.55 X10^3/uL; Monocyte% 6.7 % (0-10); NRBC Flagged by Analyzer 0 % (0-5); Neutrophil # 6.54 X10^3/uL (2.7-7.7); Neutrophil % 79.4 % (47-70); Platelet Count 482 K/mm3 (150-450); RBC Distribution Width CV 11.3 % (11.6-14.6); RBC Distribution Width SD 37.2 fl (35.1-43.9); Red Blood Count 4.47 M/mm3 (4.6-6.2); White Blood Count 8.2 K/mm3 (4.4-11.0)
[2021-01-03] MEDS: Acyclovir 5% Tube 1 APPLIC TOPICAL ×5 (05:12→21:52)
[2021-01-03 06:12] LABS: ALB/GLOB Ratio 0.4 RATIO (0.9-2.4); AST(SGOT) 33 U/L (15-37); Alanine Aminotransfer ALT/SGPT 79 U/L (16-61); Albumin, Serum 2.2 g/dL (3.2-5.0); Alkaline Phosphatase 64 U/L (45-117); Anion Gap 6 (5-15); BUN 19 mg/dL (7-18); BUN/Creat Ratio 21.4 RATIO (10-20); Calcium,Total 8.6 mg/dL (8.5-10.1); Chloride 95 mmol/L (98-107); Creatinine, Serum 0.89 mg/dL (0.70-1.30); EST Glomerular Filtration Rate 101 mL/min (>60); Est Glom Filt Rate - Afr Amer 122 mL/min (>60); Estimated Creatinine Clearance 113.92 ml/min; Glucose 110 mg/dL (74-106); Potassium 4.3 mmol/L (3.5-5.1); Protein, Total 7.2 g/dL (6.4-8.2); Sodium Level 132 mmol/L (136-145)
--- NOTE | 2021-01-03 07:09 | PCM.PN.INT ---
Assessment & Plan Assessment/Plan (1) Acute respiratory failure with hypoxia: (2) COVID-19: PLAN: RECOMMENDATIONS: 1. Continue supportive care with supplemental oxygen to maintain saturations at or above 90%. 2. Continue Decadron to complete 10-day treatment course (01/05/2021). 3. Continue Lovenox twice daily. 4. Diuretic challenge as permitted by labs 5. Continue bronchodilators. 6. Encourage incentive spirometer use and mobilize patient as tolerated. 7. Okay to transfer to [facility] from my perspective 8. Possibly check walking oximetry tomorrow for discharge IMPRESSIONS: 1. Acute hypoxemic respiratory failure secondary to COVID-19 pneumonia The patient presented to the hospital with progressive dyspnea in the setting of COVID-19, with symptom onset sometime around December 17. The patient is unvaccinated. CTA chest showed no evidence for PE earlier in the hospitalization. The patient has been started on appropriate therapy with remdesivir and Decadron, which will be continued without change. Continue supplemental oxygen and wean to maintain saturations at or above 90%. Continue bronchodilator therapy. Continue Lovenox twice daily. Patient with continued progression of disease. Patient much improved compared to previous. Continue to wean oxygen as tolerated. Continue to wean oxygen as tolerated. Possibly able to attempt walking oximetry tomorrow for discharge planning. 2. Self-reported history of asthma Continue bronchodilator therapy as ordered. Patient is on Decadron and bronchodilators. 3. Insomnia Clinical suspicion this is related to ICU level of care and acute illness. Will increase melatonin as a first choice. Seroquel will be offered if necessary. Will attempt to allow to visit to help with stress as this can also lead to insomnia. Subjective Subjective Patient did well overnight. No acute issues were reported. Patient states he feels subjectively improved. Patient continues to have a nonproductive cough. Objective Data Objective Data Vital Signs: Vital Signs Temp Pulse Resp BP Pulse Ox 36.2 C L 60 20 H 112/78 98 01/03/21 04:00 01/03/21 06:00 01/03/21 06:00 01/03/21 06:00 01/03/21 06:00 Oxygen Flow Rate (L/min) 7 Oxygen Delivery Method Nasal Cannula Weight: 85.6 kg Body Mass Index (BMI) 26.8 Intake & Output: Intake and Output for Last 24 Hours 01/01/21 01/02/21 01/03/21 23:59 23:59 23:59 Intake Total 830 / 950 1420 / 1420 120 / 120 Output Total 1650 / 1650 3350 / 3350 150 / 150 Balance -820 / -700 -1930 / -1930 -30 / -30 Lab / Micro Data Result Diagrams: 01/03/21 04:15 01/03/21 04:15 Labs: Laboratory Results - last 24 hr 01/03/21 04:15: WBC 8.2, RBC 4.47 L, Hgb 13.6, Hct 40.2, MCV 89.9, MCH 30.4, MCHC 33.8, RDW Std Deviation 37.2, RDW Coeff of [place] 11.3 L, Plt Count 482 H, MPV 9.7, Immature Gran % (Auto) 1.200 H, Neut % (Auto) 79.4 H, Lymph % (Auto) 12.6 L, [place] % (Auto) 6.7, Eos % (Auto) 0.0, Baso % (Auto) 0.1, Absolute Neuts (auto) 6.5, Absolute Lymphs (auto) 1.04, Nucleated RBC % 0 01/03/21 04:15: Sodium 132 L, Potassium 4.3, Chloride 95 L, Carbon Dioxide 31.0, Anion Gap 6, BUN 19 H, Creatinine 0.89, Estim Creat Clear Calc 113.92, Est GFR (MDRD) Af Amer 122, Est GFR (MDRD) Non-Af 101, BUN/Creatinine Ratio 21.4 H, Glucose 110 H, Calcium 8.6, Total Bilirubin 0.70, AST 33, ALT 79 H, Alkaline Phosphatase 64, Total Protein 7.2, Albumin 2.2 L, Globulin 5.0 H, Albumin/Globulin Ratio 0.4 L Micro: Microbiology 12/27/20 12:00 Nasal Secretion SARS-CoV-2 Antigen (Rapid) - Final SARS-CoV-2 (COVID 19) Physical Exam Const alert and oriented x3 Constitutional Narrative: Some conversational dyspnea noted. On nasal cannula General Appearance: cooperative HEENT normocephalic, head/scalp atraumatic and moist oral mucous membranes Eyes PERRL, EOMs intact bilaterally and conjunctivae normal Neck supple General: trachea midline Chest inspection of chest normal Chest: symmetrical chest wall rise; Negative for crepitus Resp normal respiratory effort Resp Narrative: Mild dyspnea on exertion Effort and Inspection: respiratory distress and actively coughing non-productive Auscultation: rales bilateral base and diminished lung sounds; Negative for rhonchi or wheezes Cardio regular rate and regular rhythm GI normal to inspection, nondistended, normoactive bowel sounds Extremity no clubbing, cyanosis or edema Skin no rashes or lesions noted Skin Narrative: Pressure injury noted on the lip. Neuro oriented x3, CN's II-XII intact bilaterally, moves all extremities and no focal motor deficits Psych cooperative and affect normal Charges/Coding Visit Charges Inpatient E&M: 33119 Subs Hosp L2
[2021-01-03] MEDS: Ipratropium/Albuterol Sulfate 3 ML AMPUL.NEB INHALATION ×5 (07:21→23:44)
[2021-01-03] MEDS: Enoxaparin 30 MG/0.3 ML Syringe SC ×2 (08:14→21:41)
[2021-01-03] MEDS: 0.9% Saline Lock 10 ML Syringe IV ×2 (08:15→21:45)
[2021-01-03] MEDS: dexAMETHasone 4 MG Tablet 6 MG PO (08:16)
[2021-01-03] MEDS: Pantoprazole Sodium 40 MG Tablet PO (08:16)
[2021-01-03] MEDS: guaiFENesin 1,200 MG Tablet 1200 MG PO ×2 (08:16→21:41)
[2021-01-03] MEDS: Furosemide 40 MG Tablet PO (08:16)
[2021-01-03 10:23] LABS: Magnesium 2.6 mg/dL (1.6-2.6)
--- NOTE | 2021-01-03 12:00 | PN.HOSP_ITS ---
Subjective Subjective Patient was seen and examined. He is currently on 5 L of oxygen. Denied any complaints Objective Data Objective Data Vital Signs: Vital Signs Temp Pulse Resp BP Pulse Ox 97.3 F L 79 20 H 105/76 96 01/03/21 08:00 01/03/21 11:35 01/03/21 11:35 01/03/21 08:00 01/03/21 11:00 Oxygen Flow Rate (L/min) 5 Oxygen Delivery Method Nasal Cannula Weight: 85.6 kg Body Mass Index (BMI) 26.8 Intake & Output: Intake and Output for Last 24 Hours 01/01/21 01/02/21 01/03/21 23:59 23:59 23:59 Intake Total 830 / 950 1420 / 1420 120 / 120 Output Total 1650 / 1650 3350 / 3350 850 / 850 Balance -820 / -700 -1930 / -1930 -730 / -730 Lab / Micro Data Result Diagrams: 01/03/21 04:15 01/03/21 04:15 Labs: Laboratory Results - last 24 hr 01/03/21 04:15: WBC 8.2, RBC 4.47 L, Hgb 13.6, Hct 40.2, MCV 89.9, MCH 30.4, MCHC 33.8, RDW Std Deviation 37.2, RDW Coeff of [place] 11.3 L, Plt Count 482 H, MPV 9.7, Immature Gran % (Auto) 1.200 H, Neut % (Auto) 79.4 H, Lymph % (Auto) 12.6 L , [place] % (Auto) 6.7, Eos % (Auto) 0.0, Baso % (Auto) 0.1, Absolute Neuts (auto) 6.5, Absolute Lymphs (auto) 1.04, Nucleated RBC % 0 01/03/21 04:15: Sodium 132 L, Potassium 4.3, Chloride 95 L, Carbon Dioxide 31.0, Anion Gap 6, BUN 19 H, Creatinine 0.89, Estim Creat Clear Calc 113.92, Est GFR (MDRD) Af Amer 122, Est GFR (MDRD) Non-Af 101, BUN/Creatinine Ratio 21.4 H, Gl ucose 110 H, Calcium 8.6, Total Bilirubin 0.70, AST 33, ALT 79 H, Alkaline Phosphatase 64, Total Protein 7.2, Albumin 2.2 L, Globulin 5.0 H, Albumin/Globulin Ratio 0.4 L 01/03/21 04:15: Magnesium 2.6 Micro: Microbiology 12/27/20 12:00 Nasal Secretion SARS-CoV-2 Antigen (Rapid) - Final SARS-CoV-2 (COVID 19) Physical Exam Narrative Physical exam: General: Alert, Oriented x3, Cooperative, on Airvo HEENT: Atraumatic Oral: dry oral mucosa, cold sores on lips Neck: Supple Lungs: Diminished in all lung zones Cardiovascular: HS I+II, regular, no murmurs Abdomen: Bowel Sounds Present, Soft, Non Tender Extremities: No edema Assessment & Plan Assessment/Plan (1) Acute respiratory failure with hypoxia: (2) COVID-19: PLAN: 1. Acute hypoxic respiratory failure secondary to COVID-19 pneumonia/asthma exacerbation, improving, currently on 5 L, Admitting chest x-ray and CTA of the chest shows bilateral multifocal pneumonia. No PE Continue on dexamethasone, breathing treatments We will transfer to [facility] 2. Possible acute herpes simples of lips, on topical acyclovir 3. Acute diarrhea likely secondary to COVID-19 infection, resolved Charges/Coding Visit Charges Inpatient E&M: 66019 Subs Hosp L2
[2021-01-03] MEDS: Magnesium Hydroxide 30 ML UDC PO (12:09)
[2021-01-03] MEDS: MELATONIN 10 MG TABLET PO (21:41)
[2021-01-04] VITALS (15 sets, daily range): BP systolic 102–108; BP diastolic 64–70; PULSE 52–101; RESP 18–24; TEMP 35.8–36.8; O2SAT 90–97
--- NOTE | 2021-01-04 05:14 | NURSING ---
Addendum entered by Nyasia Zhang 01/04/21 06:17: Now on 3L regular tubing NC. Oxygen saturation 95%. Original Note: Taken off 3L high flow NC for trial to regular NC tubing. 90-93% on 5L regular tubing NC.
[2021-01-04] MEDS: Acyclovir 5% Tube 1 APPLIC TOPICAL ×2 (05:20→09:59)
[2021-01-04 06:03] LABS: Absolute Lymphocyte Count 1.51 X10^3/uL (0.83-4.51); Absolute Neutrophil Count 6.3 X10^3/uL (2.0-7.7); Basophil# 0.01 X10^3/uL; Basophil% 0.1 % (0-1); Eosinophil# 0.02 X10^3/uL; Eosinophils% 0.2 % (0-5); Hematocrit 40.5 % (40-54); Hemoglobin 13.4 g/dL (13.0-16.5); Lymphocyte # 1.51 X10^3/ul (0.83-4.51); Lymphocyte % 17.6 % (19-41); Mean Corp Hgb Conc 33.1 g/dL (32-36); Mean Corpuscular Hgb 30.2 pg (27.0-32.0); Mean Corpuscular Volume 91.2 fL (80-94); Mean Platelet Vol. 9.8 fl (6.2-12.0); Monocyte# 0.67 X10^3/uL; Monocyte% 7.8 % (0-10); NRBC Flagged by Analyzer 0 % (0-5); Neutrophil # 6.25 X10^3/uL (2.7-7.7); Neutrophil % 72.9 % (47-70); Platelet Count 483 K/mm3 (150-450); RBC Distribution Width CV 11.2 % (11.6-14.6); RBC Distribution Width SD 37.7 fl (35.1-43.9); Red Blood Count 4.44 M/mm3 (4.6-6.2); White Blood Count 8.6 K/mm3 (4.4-11.0)
[2021-01-04 06:42] LABS: BUN 18 mg/dL (7-18); Creatinine, Serum 0.79 mg/dL (0.70-1.30); Glucose 97 mg/dL (74-106)
[2021-01-04 06:43] LABS: ALB/GLOB Ratio 0.5 RATIO (0.9-2.4); AST(SGOT) 27 U/L (15-37); Alanine Aminotransfer ALT/SGPT 87 U/L (16-61); Albumin, Serum 2.3 g/dL (3.2-5.0); Alkaline Phosphatase 64 U/L (45-117); Anion Gap 5 (5-15); BUN/Creat Ratio 22.9 RATIO (10-20); Calcium,Total 8.6 mg/dL (8.5-10.1); Chloride 98 mmol/L (98-107); EST Glomerular Filtration Rate 116 mL/min (>60); Est Glom Filt Rate - Afr Amer 140 mL/min (>60); Estimated Creatinine Clearance 128.34 ml/min; Globulin 4.8 g/dL (2.2-4.2); Potassium 4.2 mmol/L (3.5-5.1); Protein, Total 7.1 g/dL (6.4-8.2); Sodium Level 134 mmol/L (136-145)
[2021-01-04] MEDS: Ipratropium/Albuterol Sulfate 3 ML AMPUL.NEB INHALATION ×2 (07:14→10:30)
--- NOTE | 2021-01-04 08:38 | PN.CC_ITS ---
Assessment & Plan Assessment/Plan (1) Acute respiratory failure with hypoxia: (2) COVID-19: PLAN: RECOMMENDATIONS: 1. Continue supportive care with supplemental oxygen to maintain saturations at or above 90%. 2. Continue Decadron to complete 10-day treatment course (01/05/2021). 3. Continue Lovenox twice daily. 4. Hold on diuretics today 5. Walking oximetry. Potential discharge if able to tolerate ambulation on 6 L or less 6. Encourage incentive spirometer use and mobilize patient as tolerated. 7. If discharged, the patient should follow-up in our office in 4 to 6 weeks IMPRESSIONS: 1. Acute hypoxemic respiratory failure secondary to COVID-19 pneumonia The patient presented to the hospital with progressive dyspnea in the setting of COVID-19, with symptom onset sometime around December 17. The patient is unvaccinated. CTA chest showed no evidence for PE earlier in the hospitalization. The patient has been started on appropriate therapy with remdesivir and Decadron, which will be continued without change. Continue supplemental oxygen and wean to maintain saturations at or above 90%. Continue bronchodilator therapy. Continue Lovenox twice daily. Patient continues to improve. Will obtain a walking oximetry. If patient is able to be ambulatory on 6 L or less, okay to discharge from pulmonary perspective on the appropriate oxygen. Patient should follow-up in our office in 4 to 6 weeks. 2. Self-reported history of asthma Continue bronchodilator therapy as ordered. Patient is on Decadron and bronchodilators. 3. Insomnia Clinical suspicion this is related to ICU level of care and acute illness. Will increase melatonin as a first choice. Seroquel will be offered if necessary. Will attempt to allow to visit to help with stress as this can also lead to insomnia. Subjective Subjective Patient did well overnight. No acute issues were reported. Patient did have a bowel movement yesterday with subjective improvement. Patient has been on nasal cannula oxygen and tolerating well. No chest pain has been reported. Objective Data Objective Data Vital Signs: Vital Signs Temp Pulse Resp BP Pulse Ox 35.8 C L 67 18 102/70 93 01/04/21 06:49 01/04/21 07:14 01/04/21 07:14 01/04/21 06:49 01/04/21 07:14 Oxygen Flow Rate (L/min) 3 Oxygen Delivery Method Nasal Cannula Weight: 83.7 kg Body Mass Index (BMI) 26.8 Intake & Output: Intake and Output for Last 24 Hours 01/02/21 01/03/21 01/04/21 23:59 23:59 23:59 Intake Total 1420 / 1420 420 / 420 Output Total 3350 / 3350 850 / 850 Balance -1930 / -1930 -430 / -430 Lab / Micro Data Result Diagrams: 01/04/21 05:30 01/04/21 05:30 Labs: Laboratory Results - last 24 hr 01/03/21 04:15: Magnesium 2.6 01/04/21 05:30: WBC 8.6, RBC 4.44 L, Hgb 13.4, Hct 40.5, MCV 91.2, MCH 30.2, MCHC 33.1, RDW Std Deviation 37.7, RDW Coeff of [place] 11.2 L, Plt Count 483 H, MPV 9.8, Immature Gran % (Auto) 1.400 H, Neut % (Auto) 72.9 H, Lymph % (Auto) 17.6 L , [place] % (Auto) 7.8, Eos % (Auto) 0.2, Baso % (Auto) 0.1, Absolute Neuts (auto) 6.3, Absolute Lymphs (auto) 1.51, Nucleated RBC % 0 01/04/21 05:30: Sodium 134 L, Potassium 4.2, Chloride 98, Carbon Dioxide 31.0, Anion Gap 5, BUN 18, Creatinine 0.79, Estim Creat Clear Calc 128.34, Est GFR (MDRD) Af Amer 140, Est GFR (MDRD) Non-Af 116, BUN/Creatinine Ratio 22.9 H, Glucose 97, Calcium 8.6, Total Bilirubin 0.60, AST 27, ALT 87 H, Alkaline Phosphatase 64, Total Protein 7.1, Albumin 2.3 L, Globulin 4.8 H, Albumin/Globulin Ratio 0.5 L Micro: Microbiology 12/27/20 12:00 Nasal Secretion SARS-CoV-2 Antigen (Rapid) - Final SARS-CoV-2 (COVID 19) Physical Exam Const alert and oriented x3 Constitutional Narrative: No conversational dyspnea noted. On nasal cannula General Appearance: cooperative HEENT normocephalic, head/scalp atraumatic and moist oral mucous membranes Eyes PERRL, EOMs intact bilaterally and conjunctivae normal Neck supple General: trachea midline Chest inspection of chest normal Chest: symmetrical chest wall rise; Negative for crepitus Resp normal respiratory effort Auscultation: diminished lung sounds; Negative for rales, rhonchi or wheezes Cardio regular rate and regular rhythm GI normal to inspection, nondistended, normoactive bowel sounds Extremity no clubbing, cyanosis or edema Skin no rashes or lesions noted Skin Narrative: Lesion on the lip is improving Neuro oriented x3, CN's II-XII intact bilaterally, moves all extremities and no focal motor deficits Psych cooperative and affect normal Charges/Coding Visit Charges Inpatient E&M: 75771 Subs Hosp L2
[2021-01-04] MEDS: Enoxaparin 30 MG/0.3 ML Syringe SC (09:58)
[2021-01-04] MEDS: dexAMETHasone 4 MG Tablet 6 MG PO (09:59)
[2021-01-04] MEDS: Pantoprazole Sodium 40 MG Tablet PO (09:59)
[2021-01-04] MEDS: guaiFENesin 1,200 MG Tablet 1200 MG PO (09:59)
--- NOTE | 2021-01-04 11:16 | DCINST_ITS ---
Discharge Instructions Diet Discharge Diet: No restrictions Activity Discharge Activity: Return to Normal Activity Weight Bearing Status: Weight bearing as tolerated Follow Up Care Test Results: Test results from this visit will be discussed in further detail at your follow-up appointment, if applicable. Discharge Plan Admission Admit Date/Time: 12/27/20 13:39 Primary Reason for Your Visit: Acute COVID-19 pneumonia Attending Provider: Luz Elena German Primary Care Provider: Solitario Herrera Consulting Providers: Eric Higgins ; Jameson Oswald ; Carolina Calderon BANKING ASSISTANT Instructions Patient Instructions: Coronavirus Disease 2019 (COVID-19): Overview, Coronavirus Disease 2019 (COVID-19): Prevention, Coronavirus Disease 2019 (COVID-19): Caring for Yourself or Others, COVID-19: Lying in a Prone Position (Proning), COVID-19 and the Flu: What's the Difference?, Caring for Someone Who Has COVID-19, Disinfecting Your Home of COVID-19 Additional Instructions / Restrictions: Continue to use your incentive spirometer. Continue to remain active and eat healthy. Let your doctor know if you develop fever >101.3F or have progressive worsening shortness of breath. Follow-up with your primary care doctor and also with pulmonology. Continue to use your inhaler as needed for shortness of breath. Continue to quarantine for 20 days total from the start of your symptoms - 6 more days. Continue to monitor oxygen saturation with a pulse ox. Called the sales development representative office if your pulse of stroke persistently less than 88, to have oxygen set up for you. Discharge Orders/Prescriptions Prescriptions: New acyclovir 5 % Ointment 1 applic topical 5X/DAY 7 Days Qty: 1 RF: 0 Mucus Relief ER 1,200 mg Tablet Extended Release 12hr 1,200 mg PO BID 10 Days Qty: 20 RF: 0 Continued albuterol sulfate 2.5 mg /3 mL (0.083 %) solution for nebulization 2.5 mg inhalation Q4H RF: 0 dexamethasone 6 mg Tablet 6 mg PO DAILY 1 Days Qty: 1 RF: 0 Referrals / Follow Up: Solitario Herrera, [Primary Care Provider] - Within 2 Weeks Eric Higgins MD [STAFF PHYSICIAN] - See Referral Note (4- 6 weeks) Disposition Disposition (needs filled in before D/C Order can be placed): Home, Self Care
--- NOTE | 2021-01-04 11:31 | DS.PCM_ITS ---
Providers Date of Admission: 12/27/20 Date of Discharge: 01/04/21 Primary Care Physician: Dr. Solitario Herrera, DO Consultations 12/27/20 14:10 Consult: [employer] / Pulmonary Medicine Routine Consulting Provider: Pulmonary Medicine danny Cayce Reason for Consult: acute resp failure with covid on asthma EMERGENT Consult: No MD Notified: Yes Date Notified: 12/27/20 Time Notified: 13:39 Method of Notification: Text Reason For Visit: ACUTE HYPOXIC RESPIRATORY FAILURE SECONDARY TO Diagnosis Discharge Diagnosis (1) Acute respiratory failure with hypoxia: Status: Acute Code(s): J96.01 - Acute respiratory failure with hypoxia (2) COVID-19: Status: Acute Code(s): U07.1 - COVID-19 (3) Herpes simplex: Status: Acute Code(s): B00.9 - Herpesviral infection, unspecified Medications at Discharge Home Medications albuterol sulfate 2.5 mg INHALATION Q4H 12/27/20 acyclovir 1 applic TOPICAL 5X/DAY 7 Days #1 g 01/04/21 dexamethasone 6 mg PO DAILY 1 Days #1 tab 01/04/21 guaifenesin [Mucus Relief ER] 1,200 mg PO BID 10 Days #20 tab 01/04/21 Hospital Course Operations None Procedures None Summary of Care Provided Minutes Spent on Discharge: 50 Hospital Course: 40 y/o male with no significant PMHx who comes in with progressive SOB and wheezes ongoing for 7 days. He had generalised weakness, muscle aches, fever and chills that started 10 days ago. His was sick with COVID also. Chest X-ray and CTA chest showed bilateral extensive infitrates. His rapid COVID antigen was positive. He was initially on 7L of oxygen, admitted to ICU, sprinkler fitter apprentice consulted. He was started on Remdesivir 200mg bolus and decra dron Patient was felt to be stable and transferred out of ICU later. He was managed on PCU. Received intermittent Lasix therapy. He had episodes of diarrhea that resolved. He however had worsening oxygen status requiring use of Airvo and Bipap and was transferred to ICU. He remained in ICU for a couple of days. He was noted to have cold sores on his lips. He was started on acyclovir cream with improvement. Patient continued to improve and was transferred out of ICU to Med surg. His oxygen requirements were just 3 L/min. He was off oxygen at discharge. He did not also qualify for oxygen. He will complete 10 days of decadron. He will follow-up with his PCP also. Physical Exam Narrative Physical exam: General: Alert, Oriented x3, Cooperative, on Airvo HEENT: Atraumatic Oral: dry oral mucosa, cold sores on lips Neck: Supple Lungs: Diminished in all lung zones Cardiovascular: HS I+II, regular, no murmurs Abdomen: Bowel Sounds Present, Soft, Non Tender Extremities: No edema Weight / BMI Weight Weight: 83.7 kg Body Mass Index (BMI) 26.8 ABG / Lab / Microbiology Data Result Diagrams: 01/04/21 05:30 01/04/21 05:30 Microbiology: Microbiology 12/27/20 12:00 Nasal Secretion SARS-CoV-2 Antigen (Rapid) - Final SARS-CoV-2 (COVID 19) D/C Instructions Discharge Diet: No restrictions Weight Bearing Status: Weight bearing as tolerated Meaningful Use Info Meaningful Use Diagnoses (Choose all that apply): None applicable Discharge Plan Admission Admit Date/Time: 12/27/20 13:39 Primary Reason for Your Visit: Acute COVID-19 pneumonia Attending Provider: Luz Elena German Primary Care Provider: Solitario Herrera Consulting Providers: Eric Higgins ; Jameson Oswald ; Carolina Calderon TRAIN ENGINEER Instructions Patient Instructions: Coronavirus Disease 2019 (COVID-19): Overview, Coronavirus Disease 2019 (COVID-19): Prevention, Coronavirus Disease 2019 (COVID-19): Caring for Yourself or Others, COVID-19: Lying in a Prone Position (Proning), COVID-19 and the Flu: What's the Difference?, Caring for Someone Who Has COVID-19, Disinfecting Your Home of COVID-19 Additional Instructions / Restrictions: Continue to use your incentive spirometer. Continue to remain active and eat healthy. Let your doctor know if you develop fever >101.3F or have progressive worsening shortness of breath. Follow-up with your primary care doctor and also with pulmonology. Continue to use your inhaler as needed for shortness of breath. Continue to quarantine for 20 days total from the start of your symptoms - 6 more days. Continue to monitor oxygen saturation with a pulse ox. Called the archaeology professor office if your pulse of stroke persistently less than 88, to have oxygen set up for you. Discharge Orders/Prescriptions Prescriptions: New acyclovir 5 % Ointment 1 applic topical 5X/DAY 7 Days Qty: 1 RF: 0 Mucus Relief ER 1,200 mg Tablet Extended Release 12hr 1,200 mg PO BID 10 Days Qty: 20 RF: 0 Continued albuterol sulfate 2.5 mg /3 mL (0.083 %) solution for nebulization 2.5 mg inhalation Q4H RF: 0 dexamethasone 6 mg Tablet 6 mg PO DAILY 1 Days Qty: 1 RF: 0 Referrals / Follow Up: Eric Higgins MD [STAFF PHYSICIAN] - See Referral Note (4- 6 weeks) Solitario Herrera DO [Primary Care Provider] - Within 2 Weeks Disposition Disposition (needs filled in before D/C Order can be placed): Home, Self Care Charges/Coding Visit Charges Inpatient E&M: [id number] Disch Hosp
--- NOTE | 2021-01-06 14:18 | CASEMGMT ---
[facility] Discharge Follow-up Phone Call: ALISSON:Wm Strata:3 Call Date: 01/06/21 Discharge Date: 01/04/21 Time of Call: [phone] Admitting Diagnosis: COVID-19 This [facility] contacted pt via phone for discharge follow-up. Pt states he feels that as of today he has turned the corner and is feeling much better. Pt denies any difficulty breathing. Pt states he has not picked up the prescriptions but that he had some ointment left over from his hospital stay that he is using. States he has not picked up his other prescription. Reviewed that it was sent to the [facility] and that they have a drive through if someone is able to pick it up for him. Educated pt on the location of the drive thru. Pt aware of his quarantine period ending Tuesday. Pt has not made his follow-up appointments but was aware of the expected follow-up times for both his PCP and Dr. Higgins. Pt denied any further questions or concerns at this time. Prieto Byrne RN CM
== END 2021-01-04 14:46 | disposition home or self-care (01) | DRG 177 ==
LOC: ED 13:04 → ICU 12-28 01:56 → PCU 12-28 17:39 → ICU 12-30 14:08 → MS3 01-03 17:18
PROVIDERS: Internal Medicine Critical Care Medicine; Admitting Provider Internal Medicine; Emergency Provider Emergency Medicine; PCP Family Medicine; Referring Provider Internal Medicine; Visit Provider Internal Medicine
DX: U07.1 COVID-19 (principal); J96.01 Acute respiratory failure with hypoxia; J12.82 Pneumonia due to coronavirus disease 2019; J45.21 Mild intermittent asthma with (acute) exacerbation; B00.1 Herpesviral vesicular dermatitis; Z66 Do not resuscitate; Z28.3 Underimmunization status
CPT/HCPCS: 36415; 36600; 71045; 71275; 80048; 80053; 82728; 82803; 83735; 84145; 84484; 85025; 85379; 86140; 87426; 93005; 94003; 94640; 94660; 94667; 94668; 99251; 99283; 99284; J7050; J7120; Q9967; A4216; G0463; J1940

== ENCOUNTER → 2021-03-05 08:25 | Outpatient (CLI) | payer OTHER, SELFPAY ==
--- NOTE | 2021-03-05 12:52 | PFT ---
INTRODUCTION: The patient is a 40-year-old male that presents for pulmonary function studies secondary to a diagnosis of COVID-19. Respiratory therapy reported good patient effort. Bronchodilators were used during testing. INTERPRETATION: Forced expiration spirometry demonstrates no evidence of a large airways obstructive ventilatory defect. There was no significant response to aerosolized bronchodilators. Spirograms are of good quality and plateau normally. Body plethysmography was performed and revealed a decreased TLC to 5.91 L, 85% of predicted, indicative of a mild restrictive ventilatory impairment. Diffusing capacity by single breath CO was reduced to 60% of predicted. IMPRESSION: Mild restrictive ventilatory impairment with symmetric reduction in diffusing capacity.
== END ==
PROVIDERS: PCP Family Medicine; Referring Provider Nurse Practitioner Acute Care; Visit Provider Nurse Practitioner Acute Care
DX: U07.1 COVID-19 (principal)
CPT/HCPCS: 94060; 94726; 94729